=== PATIENT | female | born 1995 ===

== ENCOUNTER 2025-09-30 12:39 | Outpatient (AMB) | payer BC, SELFPAY ==
--- NOTE | 2025-09-30 12:50 | A.OFFPC_ITS ---
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: No Accompanied by: Self / Same As Patient Allergies prednisone Allergy (Severe, Verified 09/30/25 12:54) stop breathing Medication List - Last Reconciled 09/30/25 by Ebony Zayas MD loratadine 10 mg PO DAILY naproxen 750 mg PO ONCE PRN Tobacco use date assessed: 09/30/25 Dental Screening Dental Screen Date: 09/30/25 Did you have a dental visit in the last 12 months?: Yes Did you have a dental problem in the last 6 months where you did not have access to dental care?: No Was dental information given to patient?: Patient has dentist HPI HPI Comments History of Present Illness Details Patient is a 30-year-old female presenting to [facility] care and evaluation of multiple concerns. The patient reports a history of fainting episodes for many years, dating back to childhood. These episodes became more frequent a few years ago, but have since improved to presyncopal episodes about once a week. The last syncopal episode with loss of consciousness was in 2020. Pre-syncopal symptoms include feeling clammy and cold, tinnitus, tunnel vision, and headache, lasting for a few minutes with no specific triggers. Intermittent palpitations. The patient previously used a watch that monitored heart rate and recorded highs of 170 bpm and lows of 50 bpm within the same hour. Drinks 1-2 coffee a week and energy drink once a week. For the past couple of months, the patient has experienced generalized pruritus and a burning sensation over the whole body, leading to bruises and skin breakdown from scratching. Denies any rash, changes in his skin products or detergents. Reports Benadryl intolerance it causes her anxiety and pa lpitations. The patient also reports a history of high cholesterol, painful periods requiring missing work, anemia, and vitamin B12 deficiency. A workup for rheumatoid arthritis was started in the past. Past surgical history is negative. The patient takes naproxen as needed. Family history is significant for diabetes, POTS, and early-onset heart attacks in the father in his 50s. The paternal grandmother had blood and breast cancer. 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 The patient smokes two cigarettes daily, reduced few months ago from up to a pack a day for 13 years. The patient is also cutting back on alcohol, currently drinking 3-4 glasses of wine twice a week, and uses a marijuana vape weekly for sleep. [facility] Social History Housing: Other Housing Other:: renting room Patient Tobacco Use Status: Current everyday Tobacco user Cigarettes Per Day: 2 Years Smoked: 13 years e-Cigarette/Vaping Use: Currently Using service: No Current occupational status: employed Current occupation: [employer] Questionnaire PHQ-9 Over the last 2 weeks, how often have you been bothered by any of the following problems? 1. Little interest or pleasure in doing things: nearly every day 2. Feeling down, depressed, or hopeless: nearly every day 3. Trouble falling or staying asleep, or sleeping too much: nearly every day 4. Feeling tired or having little energy: nearly every day 5. Poor appetite or overeating: nearly every day 6. Feeling bad about yourself - or that you are a failure or have let yourself o r your family down: nearly every day 7. Trouble concentrating on things, such as reading the newspaper or watching television: nearly every day 8. Moving or speaking so slowly that other people could have noticed. Or the opposite - being so fidgety or restless that you have been moving around a lot more than usual: several days 9. Thoughts that you would be better off or of hurting yourself in some way: not at all Total score: 22 Source: Developed by Drs. Kian Pace, Denisse Driscoll, Renny Crow and colleagues, with an educational jam from [employer]. Thrive Questionnaire Date Thrive assessed: 09/30/25 I am a: Patient What is your living situation today?: I have a place to live, but I am worried about losing it in the future Within the past 12 months, did the food you bought not last and you didn't have the money to get more?: I choose not to answer this question Within the past 12 months, did you worry whether your food would run out before you got money to buy more?: Sometimes True Do you have trouble paying for medicines?: Yes Do you have trouble getting transportation to medical appointments?: Yes Do you have trouble paying your heating and electricity bill?: I choose not to answer this question Do you have trouble taking care of your child, family member or friend?: No Do you have trouble with day-to-day activities such as bathing, preparing meals, shopping, managing finances, etc.?: Yes Are you currently unemployed and looking for a job?: No Are you interested in more education?: I choose not to answer this question Please select the resources that you would like help with: Housing/Assisted and Paying for medicine Currently or been in a relationship where the following occur: No concerns reported THRIVE Score: 3 AUDIT C Alcohol Use Questionnaire (AUDIT-C) 1. How often do you have a drink containing alcohol?: 2-3 times a week 2. How many drinks containing alcohol do you have on a typical day when you are drinking?: 5 or 6 3. How often do you have six or more drinks on one occasion?: Monthly Total Score: 7 RAUL-7 AMB Questionnaire RAUL-7 Date RAUL - 7 assessed: 09/30/25 Feeling nervous, anxious, or on edge: 3 = Nearly every day Not being able to stop or control worryin = Nearly every day Worrying too much about different things: 3 = Nearly every day Trouble relaxin = Nearly every day Being so restless that it is hard to sit still: 2 = More than half the days Becoming easily annoyed or irritable: 3 = Nearly every day Feeling afraid as if something awful might happen: 3 = Nearly every day Total RAUL-7 score (0-4 normal; 5-9 mild; 10-14 moderate; 15-21 severe): 20 Source: Developed by Drs. Kian Pace, Denisse Driscoll, Renny Crow and colleagues, with an educational jam from [employer]. Physical exam (Primary Care) Vital Signs: Last Vital Signs Pulse 110 H 09/30/25 12:52 Resp 16 09/30/25 12:52 BP 116/82 09/30/25 12:52 Pulse Ox 99 09/30/25 12:52 Oxygen Delivery Method Room Air 09/30/25 12:52 General: Well-appearing, alert, oriented ?3, in no acute distress. Cardiovascular: RRR, S1-S2 appreciated, no murmurs, rubs or gallops. Respiratory: Lungs clear to auscultation bilaterally, no wheezes, rales or rhonchi. Abdomen: Soft, nontender, nondistended. Normoactive bowel sounds. No lower extremity edema. BMI result Body Mass Index 23.0 Tobacco/Smoking Status: Tobacco use Status Tobacco use date assessed 09/30/25 09/30/25 12:51 Patient Tobacco Use Status Current everyday Tobacco 09/30/25 13:00 e-Cigarette/Vaping Use Currently Using 09/30/25 13:00 PHQ-9: PHQ-9 Score PHQ-9: Total score 22 09/30/25 12:51 Thrive Assessment: Date of Thrive Assessment Date Thrive assessed 09/30/25 09/30/25 13:00 Currently or been in a relationship where the following occur: No concerns reported Coding Level of Care Code New Pt Level 4 (96505) Diagnoses Establishing care with new doctor, encounter for Z76.89 Palpitations R00.2 Generalized pruritus L29.9 Anemia, unspecified type D64.9 Anemia type: unspecified type Vitamin B12 deficiency E53.8 Assessment & Plan Assessment & Plan (1) Establishing care with new doctor, encounter for: Code(s): Z76.89 - Persons encountering health services in other specified circumstances Plan: Patient is a 22-year-old female presenting to establish care. (2) Palpitations: Code(s): R00.2 - Palpitations Category: Medical Plan: Patient reports a longstanding history of intermittent palpitations presyncopal episodes and syncopal episodes in the past, last occurred in 2020. Reports significant heart rate variability noted on her Apple watch ranging from 50s to 170s. Reports family history of POTS and heart attack in her father in his 50s. Plan is to obtain blood work, an EKG, a 3 day Holter monitor and echocardiogram. Referral to Cardiology placed for further evaluation and management. (3) Generalized pruritus: Code(s): L29.9 - Pruritus, unspecified Category: Medical Plan: Patient complains of diffuse itching and burning sensation in her entire body for the past 2 months resulting in excoriations, without rash or specific lesions. Could be neurodermatitis, xerosis. Patient advised to laundry detergent and skin care products for sensitive skin, apply daily moisturizer. Consider shower head water filter. Patient reports reaction to Benadryl of worsened anxiety and palpitations. Start loratadine 10 mg daily for symptomatic relief (4) Anemia: Code(s): D64.9 - Anemia, unspecified Category: Medical Qualifiers: Anemia type: unspecified type Qualified Code(s): D64.9 - Anemia, unspecified Plan: Patient reports history of anemia. Obtain CBC and iron panel (5) Vitamin B12 deficiency: Code(s): E53.8 - Deficiency of other specified B group vitamins Plan: Patient reports history of vitamin B12 deficiency, obtain level. Orders: Orders Lipid Panel with Reflex Today E78.5 - Hyperlipidemia, unspecified Hemoglobin A1c Today Z83.3 - Family history of diabetes mellitus Complete Blood Count Auto Diff Today Z00.00 - Encounter for general adult medical examination without abnormal findings Comprehensive Met. Panel Today Z00.00 - Encounter for general adult medical examination without abnormal findings IRON PROFILE Today D64.9 - Anemia, unspecified Vitamin D 25-OH (D2 and D3) Today Z13.21 - Encounter for screening for nutritional disorder Vitamin B12 and Folate Today E53.8 - Deficiency of other specified B group vitamins ECG 12 lead EKG Today R00.2 - Palpitations ECG 3 day holter monitor Today R00.2 - Palpitations CA echo transthoracic complete Today R00.2 - Palpitations Magnesium Today R00.2 - Palpitations Referrals Cardiology Referral R00.2 - Palpitations Medications: New loratadine 10 mg PO DAILY 30 tabs 2RF pruritis
[2025-09-30 12:52] VITALS: BP 116/82; PULSE 110; RESP 16; O2SAT 99; BMI 23.0
== END 2025-09-30 13:45 | disposition home or self-care (01) ==
LOC: HO.HMCH 12:39
PROVIDERS: PCP Student in an Organized Health Care Education/Training Program; Visit Provider Student in an Organized Health Care Education/Training Program
DX: Z76.89 Persons encountering health services in other specified circumstances (principal); R00.2 Palpitations; L29.9 Pruritus, unspecified; D64.9 Anemia, unspecified; E53.8 Deficiency of other specified B group vitamins

== ENCOUNTER 2025-10-08 08:15 | Outpatient (REF) | payer BC, SELFPAY ==
[2025-10-08 08:28] LABS: MANUAL DIFF FLAG NO
[2025-10-08 08:41] LABS: Hematocrit 42.5 % (37.0-47.0); Hemoglobin 14.0 g/dl (12.0-16.0); Imm Gran Abs Auto 0.03 X10*3/uL (0.00-0.03); Imm Gran Pct Auto 0.3 % (0.0-0.4); Lymphocytes Absolute Auto 2.5 X10*3/uL (1.2-4.9); Mean Corpuscular HGB Conc 32.9 g/dl (31.0-35.0); Mean Corpuscular Hemoglobin 31.5 pg (27.0-33.0); Mean Corpuscular Volume 95.5 fL (80.0-98.0); NRBC Abs Auto 0.000 X10*3/uL (0.0-0.012); NRBC Pct Auto 0.0 /100WBC (0.0-0.2); Platelet Count 247 X10*3/uL (160-400); Red Blood Count 4.45 X10*6/uL (4.20-5.50); White Blood Count 8.7 X10*3/uL (4.8-10.8)
[2025-10-08 09:19] LABS: Alanine Aminotransferase 18 U/L (0-31); Albumin Level 4.6 g/dL (3.5-5.0); Alkaline Phosphatase 78 U/L (39-117); Anion Gap 11 (12-20); Aspartate Amino Transferase 22 U/L (5-31); Blood Urea Nitrogen 12 mg/dL (9-16); Calcium 9.0 mg/dL (8.4-10.2); Carbon Dioxide 27 mmol/L (22-29); Chloride 107 mmol/L (96-108); Cholesterol 163 mg/dL (<200); Estimated Glomerular Filt Rate > 60; HDL Cholesterol 69 mg/dL (>40); Iron 150 mcg/dL (30-160); Magnesium 1.7 mg/dL (1.6-2.6); Percent Iron Saturation 45 % (15-50); Potassium 4.0 mmol/L (3.3-5.1); Sodium 141 mmol/L (135-145); Total Iron Binding Capacity 333 mcg/dL (228-428); Total Protein 7.4 g/dL (6.5-8.0); Triglycerides 57 mg/dL (<150); Unsaturated Iron Binding 183 ug/dL
[2025-10-08 09:55] LABS: Folate 8.1 ng/mL (> or = 4.0); Vitamin B12 391 pg/mL (200-900)
[2025-10-08 11:43] LABS: Reflex LDLD? No
[2025-10-12 07:04] LABS: Vitamin D 25-OH, D2 <4 ng/mL; Vitamin D 25-OH, D3 11 ng/mL; Vitamin D 25-OH, Total 11 ng/mL (30-100)
== END 2025-10-08 08:16 | disposition home or self-care (01) ==
LOC: HO.LAB 08:15
PROVIDERS: PCP Student in an Organized Health Care Education/Training Program; Visit Provider Student in an Organized Health Care Education/Training Program
DX: Z00.00 Encounter for general adult medical examination without abnormal findings (principal); E78.5 Hyperlipidemia, unspecified; Z83.3 Family history of diabetes mellitus; D64.9 Anemia, unspecified; E53.8 Deficiency of other specified B group vitamins; Z13.21 Encounter for screening for nutritional disorder; R00.2 Palpitations; Z13.1 Encounter for screening for diabetes mellitus
CPT/HCPCS: 36415; 80053; 80061; 82306; 82607; 82746; 83036; 83540; 83735; 85025

== ENCOUNTER 2025-10-16 17:24 | Inpatient (IN) | payer BC, SELFPAY ==
[2025-10-16 17:26] VITALS: BMI 23.8
[2025-10-16 17:36] VITALS: BP 148/71; PULSE 88; RESP 20; TEMP 37.1; O2SAT 96
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
[2025-10-16 20:00] VITALS: BP 124/61; PULSE 83; RESP 20; TEMP 37; O2SAT 95
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
[2025-10-17 08:00] VITALS: BP 123/72; PULSE 83; TEMP 36.1; O2SAT 99
[2025-10-17] MEDS: FLUoxetine HCl Oral Solution 20 MG/5 ML SOLUTION 10 MG PO (08:35)
[2025-10-17 08:48] LABS: Alanine Aminotransferase 19 U/L (0-31); Albumin Level 4.5 g/dL (3.5-5.0); Alkaline Phosphatase 75 U/L (39-117); Anion Gap 11 (12-20); Aspartate Amino Transferase 23 U/L (5-31); Blood Urea Nitrogen 11 mg/dL (9-16); Calcium 9.8 mg/dL (8.4-10.2); Carbon Dioxide 28 mmol/L (22-29); Chloride 104 mmol/L (96-108); Cholesterol 200 mg/dL (<200); Creatinine Clr Calc Pharmacy 102.4; Estimated Glomerular Filt Rate > 60; HDL Cholesterol 88 mg/dL (>40); Magnesium 2.1 mg/dL (1.6-2.6); Potassium 4.1 mmol/L (3.3-5.1); Sodium 139 mmol/L (135-145); Total Protein 7.2 g/dL (6.5-8.0); Triglycerides 58 mg/dL (<150)
[2025-10-17 09:03] LABS: Free T4 (Free Thyroxine) 1.15 ng/dL (0.71-1.85); Thyroid Stimulating Hormone 1.58 uIU/mL (0.32-4.0)
[2025-10-17 09:15] LABS: Folate 9.7 ng/mL (> or = 4.0); Vitamin B12 388 pg/mL (200-900)
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
[2025-10-17 11:35] VITALS: BP 130/70; PULSE 86; RESP 20; TEMP 36.6; O2SAT 98
[2025-10-17 20:00] VITALS: BP 127/79; PULSE 104; RESP 15; TEMP 36.6; O2SAT 98
[2025-10-18 08:00] VITALS: BP 114/70; PULSE 97; TEMP 36.4; O2SAT 98
[2025-10-18 11:20] VITALS: BP 120/66; PULSE 86; RESP 18; TEMP 36.6; O2SAT 98
[2025-10-18 12:22] LABS: Bacterial Vaginosis PCR NEGATIVE (Negative); Candida Group PCR DETECTED (Not Detect); Candida glab krusei PCR NOT DETECTED (Not Detect); Trichomonas vaginalis PCR NOT DETECTED (Not Detect)
--- NOTE | 2025-10-18 15:18 | MHC.RECOVRN ---
Attempted to meet with pt. x 2 following consult received for alcohol abuse. Pt in meeting with [employer]. Will attempt again tomorrow. ACS available PRN
--- NOTE | 2025-10-18 17:49 | P.PNPSI_ITS ---
Subjective Subjective Date of Service: 10/18/25 Reason For Visit: SI Interim History: Met with patient; discussed with team Patient said that in some way she is starting to feel little better SI is fully resolved; however she is also starting to be come more aware of her depression and anxiety. Patient is most anxious about where she is going to live since this a restraining order on her at her current residents. She does not think family will be able to help all that much. However patient trying to remain hopeful, reminding herself that she is resilient, has a good job and has made it through many other things, even without medication; she thinks her Seroquel should be increased and agreed to have it go to 100 mg Mental Status Exam Mental Status Exam Narrative: Pt is alert and oriented; behavior is cooperative, friendly and calm; patient is not in distress; dressed in casual attire with unkempt hair but adequate hygiene; mood is described as anxious.. Depressed and affect congruent, a little downcast eye contact appropriate; Speech is normal rate, volume and prosody and not pressured; no psychomotor agitation/retardation present; thought process is organized and goal directed; Thought content is on psychosocial stressors, treatment; otherwise pertinent to relevant topics and without any delusional content, paranoid ideations or grandiosity; denies any SI/HI. Denies AVH and there is no evidence of perceptual disturbance. Patients insight and judgment appear intact. Diagnostics Vital Signs (24Hr): Vital Signs - 24 hr 10/17/25 20:00 10/18/25 08:00 10/18/25 11:20 Temperature 97.8 F 97.5 F 98 F Pulse Rate 104 H 97 86 Respiratory Rate 15 18 Blood Pressure 127/79 114/70 120/66 Pulse Oximetry 98 98 98 Oxygen Delivery Method Room Air Room Air BMI result Body Mass Index 23.8 Labs 10/17/25 08:08 Labs: Laboratory Results - last 48 hr 10/17/25 10/17/25 10/17/25 08:08 08:09 11:40 Sodium 139 Potassium 4.1 Chloride 104 Carbon Dioxide 28 Anion Gap 11 L BUN 11 Creatinine 0.61 Estim Creat Clear Calc 102.4 Estimated GFR > 60 Random Glucose 92 Estimat Average Glucose 88 Hemoglobin A1c % 4.7 Calcium 9.8 D Magnesium 2.1 Total Bilirubin 0.9 AST 23 ALT 19 Alkaline Phosphatase 75 Total Protein 7.2 Albumin 4.5 Triglycerides 58 Cholesterol 200 H LDL Cholesterol, Calc 101 H HDL Cholesterol 88 Vitamin B12 388 Folate 9.7 TSH 1.58 Free T4 1.15 T. vaginalis (PCR) NOT DETECTED Bact vaginosis (PCR) NEGATIVE C. krusei/glabrata (PCR) NOT DETECTED Autumn group (PCR) DETECTED A Medications Medications Current Medications Acetaminophen (Acetaminophen 325 Mg Tablet) 650 mg PO Q6H PRN PRN Reason: Headache/Pain, Scale 1-10 Al Hydroxide/Mg Hydroxide (Magnesium Hydrox/Alum Hydrox 30 Ml Oral.Susp) 30 ml PO Q6H PRN PRN Reason: Heartburn/Nausea Fluoxetine HCl (Fluoxetine Hcl 10 Mg Capsule) 10 mg PO DAILY [facility] Last Admin: 10/18/25 09:33 Dose: 10 mg Hydroxyzine HCl (Hydroxyzine Hcl 25 Mg Tablet) 25 mg PO Q6H PRN PRN Reason: mild anxiety Last Admin: 10/17/25 18:20 Dose: 25 mg Loratadine (Loratadine 10 Mg Tablet) 10 mg PO DAILY [facility] Last Admin: 10/18/25 09:33 Dose: 10 mg Lorazepam (Lorazepam 1 Mg Tablet) 1 mg PO Q2H PRN PRN Reason: CIWA 8-11 Last Admin: 10/18/25 11:20 Dose: 1 mg Lorazepam (Lorazepam 1 Mg Tablet) 2 mg PO Q2H PRN PRN Reason: CIWA 12-15 Magnesium Hydroxide (Milk Of Magnesia 30 Ml Oral.Susp) 30 ml PO DAILY PRN PRN Reason: Constipation Melatonin (Melatonin 3 Mg Tablet) 6 mg PO BEDTIME [facility] Last Admin: 10/17/25 20:40 Dose: 6 mg Nicotine (Nicotine 21 Mg Patch.Td24) 21 mg TRANSDERMA DAILY PRN PRN Reason: nicotine craving Nicotine Polacrilex (Nicotine Polacrilex 2 Mg Gum) 2 mg BUCCAL Q2H PRN PRN Reason: Nicotine Cravings Last Admin: 10/18/25 13:24 Dose: 2 mg Quetiapine Fumarate (Quetiapine Fumarate 25 Mg Tablet) 25 mg PO BID PRN PRN Reason: agation/pschosis Last Admin: 10/18/25 16:21 Dose: 25 mg Quetiapine Fumarate (Quetiapine Fumarate 100 Mg Tablet) 100 mg PO BEDTIME [facility] Thiamine HCl (Thiamine Hcl 100 Mg Tablet) 100 mg PO DAILY [facility] Last Admin: 10/18/25 09:33 Dose: 100 mg Trazodone HCl (Trazodone Hcl 50 Mg Tablet) 50 mg PO BEDTIME MRX1 PRN PRN Reason: Insomnia Last Admin: 10/17/25 22:47 Dose: 50 mg Vitamin D (Cholecalciferol (Vitamin D3) 25 Mcg Tablet) 25 mcg PO DAILY [facility] Last Admin: 10/18/25 09:33 Dose: 25 mcg Allergies Allergies Allergy/AdvReac Type Severity Reaction Status Date / Time prednisone Allergy Severe stop Verified 09/30/25 12:54 breathing Assessment & Plan Assessment & Plan (1) MDD (major depressive disorder), recurrent episode, moderate: Status: Acute Code(s): F33.1 - Major depressive disorder, recurrent, moderate (2) OCD (obsessive compulsive disorder): Status: Acute Code(s): F42.9 - Obsessive-compulsive disorder, unspecified (3) Borderline personality disorder in adult: Status: Acute Code(s): F60.3 - Borderline personality disorder (4) ADHD: Status: Acute Code(s): F90.9 - Attention-deficit hyperactivity disorder, unspecified type (5) Eating disorder: Status: Acute Code(s): F50.9 - Eating disorder, unspecified (6) Complex posttraumatic stress disorder: Status: Acute Code(s): F43.10 - Post-traumatic stress disorder, unspecified (7) Homeless: Status: Acute Code(s): Z59.00 - Homelessness unspecified Plan HPI: patient is a 30-year-old single Green[place]ic speaking female with hx of MDD, ADHD, OCD, BPD, EDNOS, anxiety, and complicated/chronic PTSD who presenting to the emergency department after suicide attempt by cutting her left wrist Precipitants: Patient reports her roommate filed restraining order against her, which pushed her over the edge . She took a kitchen knife to her left wrist and cut her wrist in front of both her roommate and the homeowner where she is living. Denies any HI. No A/V hallucination. Endorses regular alcohol use, no history of withdrawals. No access to firearms. States a long history of mental health problems, has been inpatient before. Just establish care with a PCP for the first time in 8 years and has not yet been put on any mental health medications.Reports she is in her final year of her associates degree and is now frustrated because if she goes inpatient, that will be ruined for her as well. Feels like she cannot catch a break. Formulation/clinical reasoning: Cut self with intent to take her life away, increased in anxiety and depression, mood is up and down from BPD, not into an issues with roommate and has no contact order from roommate, therefore she may not able to return- housing unstable which triggered PTSD symptoms. Hx of BPD, OCD, ADHD, MDD, anxiety, and complex PTSD. Given above information, patient would benefit in restrictive environment for own safety and the safety of others, medication management, and refer patient to intermediate/OP psychiatric services for aftercare. Hospital course: 10/16/25: Prozac 10mg daily in the AM for anixety/depression/OCD. (denies manic hx) Seroquel 50mg at HS for mood/insomnia which can be chronic Seroquel 25mg BID PRN for agitation/psychosis Melatonin 6mg at HS for insonia Vitamin D3 25mcg dialy in the morning for low vitamin level (11). CIWA Protocol with PRN Ativan for alcohol W/D symptoms. PRN for anxiety/insomnia and other PRN comfort meds available. 10/17 patient reports starting to feel better; says she slept well with trazodone. Wants to continue with Prozac and Seroquel. Some withdrawal continues but she thinks it is waning. No SI -patient wants help getting and staying sober 10/18 Patient said that in some way she is starting to feel little better SI is fully resolved; however she is also starting to be come more aware of her depression and anxiety. Patient is most anxious about where she is going to live since this a restraining order on her at her current residents. She does not think family will be able to help all that much. However patient trying to remain hopeful, reminding herself that she is resilient, has a good job and has made it through many other things, even without medication; she thinks her Seroquel should be increased and agreed to have it go to 100 mg -patient earlier today complained of mild rash on her chest and abdomen; content writer assess later in the afternoon and it was hardly visible and patient agreed that it seems to be resolving; she thinks it might be due to contact with hospital clothing on her admission. Agrees to monitor -low scoring but still some scoring so will continue CIWA for now Plan Patient on 15 minute checks for safety. Admitted to M5. CV. Continue Prozac 10 mg Increase to Seroquel 100 mg Work with treatment team to do collateral. Refer to patient to solar energy sales specialist: yes- pending for alcohol use. Contact the hospitalist regarding hospitalist consultation on admission: pending Diagnotic and dsicharge planning Medical trials: seroquel, Prozac, flexeril and zyprexa.Report zyprexa has terrible side effects of weight gain and not helpful but combination of Seroquel and Prozac in the past were very helpful. She would like to restart. We also discuss regarding Prazosin but will start Seroquel and Prozac for now and will plan to add Prazosin in the future for PTSD. I think it is safer that way. Patient educated on: diagnosis, medication risk/benefits and therapeutic strategies Informed Consent: understands Reason for continued inpatient stay Substantial Risk for: rapid decompensation Time Spent With Patient Time: Total time managing care of this patient today ____ minutes.
[2025-10-18 20:00] VITALS: BP 130/88; PULSE 99; RESP 15; TEMP 36.6; O2SAT 98
[2025-10-19 08:00] VITALS: BP 108/78; PULSE 218; RESP 18; TEMP 36.4; O2SAT 97
[2025-10-19 08:12] VITALS: PULSE 86
--- NOTE | 2025-10-19 08:12 | PC.NURSE ---
PT's pulse during vitals noted to be 218 by [facility], via dynamap and palpation, recheck was completed by RN with resting radial pulse at 86, patient states, This is something I have had and I am going to a plate conditioner who is going to put me on a halter monitor to check . Patient shows no signs of distress, resp even and unlabored, caox4, PWD, denies any symptoms, ambulating with a steady gait. Provider notified.
--- NOTE | 2025-10-19 10:04 | P.PNPSI_ITS ---
Subjective Subjective Date of Service: 10/19/25 Reason For Visit: SI Subjective Notes: Conditional Voluntary Healthcare Proxy: No Guardianship: No Medical Problems Affecting Mental Status: No Interim History: Denies SI,HI,AH,VH. CIWA/Lorazepam discontinued as pt believes she has completed detox. Discussed PTSD, trauma and medicating with alcohol. Pt's goals are to re- establish meds, receive referrals for stable out pt provider team and continue to work on stable housing. Reports diagnosis of borderline personality when in [place] which she will challenge-believes PTSD, Autism are more appropriate. My father has borderline personality, I do not lash out and don't believe I meet this criteria. Discussed autism dx-never formally tested. Reports IQ 162 with sx present since childhood. Discussed homelessness-cousin is helpful, offering storage space. Cousin's friend may be an option for housing. Pt and mother have been looking to live together for several years. Mother currently in supported living which pt describes as a bad situation. They are on a section VIII list, however, pt updated her name in April 2025 and was not allowed to update her application with her new name. She receives food stamps only and is looking for the stability of housing. 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 Later in the afternoon pt was served a restraining order by her partner. Medication Compliance: Yes Side effects from medications: No Attending Groups: Yes Review of Systems Acute medical concerns: No Review of Systems Review of Systems denies Mental Status Exam Mental Status Exam Patient Appearance: Appropriate Patient Orientation: Person, Place, Time and Situation Level of Consciousness: Alert Patient Behavior: Talkative and Good Eye Contact Mood Description: Anxious and Apprehensive Affect Description: Anxious and Apprehensive Patient Cognition Impaired: No Ability to Follow Directions: Good Speech Pattern: Spontaneous Speech Memory Description: Intact Hallucinations: None Delusions: Not Present Thought Process: Intact and Goal Oriented Thought Content: positive for Intact, positive for Goal Oriented and positive for Suicidal Ideation (denies) Depressive Symptoms: Thoughts of /Suicide (denies) Judgement: Fair Diagnostics Vital Signs (24Hr): Vital Signs - 24 hr 10/18/25 11:20 10/18/25 20:00 10/19/25 08:00 Temperature 98 F 97.9 F 97.5 F Pulse Rate 86 99 218 H Respiratory Rate 18 15 18 Blood Pressure 120/66 130/88 108/78 Pulse Oximetry 98 98 97 Oxygen Delivery Method Room Air Room Air 10/19/25 08:12 Temperature Pulse Rate 86 Respiratory Rate Blood Pressure Pulse Oximetry Oxygen Delivery Method BMI result Body Mass Index 23.8 Labs 10/17/25 08:08 Labs: Laboratory Results - last 48 hr 10/17/25 11:40 T. vaginalis (PCR) NOT DETECTED Bact vaginosis (PCR) NEGATIVE C. krusei/glabrata (PCR) NOT DETECTED Autumn group (PCR) DETECTED A Medications Medications Current Medications Acetaminophen (Acetaminophen 325 Mg Tablet) 650 mg PO Q6H PRN PRN Reason: Headache/Pain, Scale 1-10 Al Hydroxide/Mg Hydroxide (Magnesium Hydrox/Alum Hydrox 30 Ml Oral.Susp) 30 ml PO Q6H PRN PRN Reason: Heartburn/Nausea Fluoxetine HCl (Fluoxetine Hcl 10 Mg Capsule) 10 mg PO DAILY [facility] Last Admin: 10/19/25 08:41 Dose: 10 mg Hydroxyzine HCl (Hydroxyzine Hcl 25 Mg Tablet) 25 mg PO Q6H PRN PRN Reason: mild anxiety Last Admin: 10/19/25 09:25 Dose: 25 mg Loratadine (Loratadine 10 Mg Tablet) 10 mg PO DAILY [facility] Last Admin: 10/19/25 08:41 Dose: 10 mg Lorazepam (Lorazepam 1 Mg Tablet) 1 mg PO Q2H PRN PRN Reason: CIWA 8-11 Last Admin: 10/18/25 11:20 Dose: 1 mg Lorazepam (Lorazepam 1 Mg Tablet) 2 mg PO Q2H PRN PRN Reason: CIWA 12-15 Magnesium Hydroxide (Milk Of Magnesia 30 Ml Oral.Susp) 30 ml PO DAILY PRN PRN Reason: Constipation Melatonin (Melatonin 3 Mg Tablet) 6 mg PO BEDTIME [facility] Last Admin: 10/18/25 20:55 Dose: 6 mg Nicotine (Nicotine 21 Mg Patch.Td24) 21 mg TRANSDERMA DAILY PRN PRN Reason: nicotine craving Nicotine Polacrilex (Nicotine Polacrilex 2 Mg Gum) 2 mg BUCCAL Q2H PRN PRN Reason: Nicotine Cravings Last Admin: 10/18/25 19:32 Dose: 2 mg Quetiapine Fumarate (Quetiapine Fumarate 25 Mg Tablet) 25 mg PO BID PRN PRN Reason: agation/pschosis Last Admin: 10/18/25 16:21 Dose: 25 mg Quetiapine Fumarate (Quetiapine Fumarate 100 Mg Tablet) 100 mg PO BEDTIME [facility] Last Admin: 10/18/25 20:55 Dose: 100 mg Thiamine HCl (Thiamine Hcl 100 Mg Tablet) 100 mg PO DAILY [facility] Last Admin: 10/19/25 08:41 Dose: 100 mg Trazodone HCl (Trazodone Hcl 50 Mg Tablet) 50 mg PO BEDTIME MRX1 PRN PRN Reason: Insomnia Last Admin: 10/18/25 20:55 Dose: 50 mg Vitamin D (Cholecalciferol (Vitamin D3) 25 Mcg Tablet) 25 mcg PO DAILY [facility] Last Admin: 10/19/25 08:40 Dose: 25 mcg Allergies Allergies Allergy/AdvReac Type Severity Reaction Status Date / Time prednisone Allergy Severe stop Verified 09/30/25 12:54 breathing Assessment & Plan Assessment & Plan (1) MDD (major depressive disorder), recurrent episode, moderate: Status: Acute Code(s): F33.1 - Major depressive disorder, recurrent, moderate (2) OCD (obsessive compulsive disorder): Status: Acute Code(s): F42.9 - Obsessive-compulsive disorder, unspecified (3) Borderline personality disorder in adult: Status: Acute Code(s): F60.3 - Borderline personality disorder (4) ADHD: Status: Acute Code(s): F90.9 - Attention-deficit hyperactivity disorder, unspecified type (5) Eating disorder: Status: Acute Code(s): F50.9 - Eating disorder, unspecified (6) Complex posttraumatic stress disorder: Status: Acute Code(s): F43.10 - Post-traumatic stress disorder, unspecified (7) Homeless: Status: Acute Code(s): Z59.00 - Homelessness unspecified Plan HPI: patient is a 30-year-old single [place] speaking female with hx of MDD, ADHD, OCD, BPD, EDNOS, anxiety, and complicated/chronic PTSD who presenting to the emergency department after suicide attempt by cutting her left wrist Precipitants: Patient reports her roommate filed restraining order against her, which pushed her over the edge . She took a kitchen knife to her left wrist and cut her wrist in front of both her roommate and the homeowner where she is living. Denies any HI. No A/V hallucination. Endorses regular alcohol use, no history of withdrawals. No access to firearms. States a long history of mental health problems, has been inpatient before. Just establish care with a PCP for the first time in 8 years and has not yet been put on any mental health medications.Reports she is in her final year of her associates degree and is now frustrated because if she goes inpatient, that will be ruined for her as well. Feels like she cannot catch a break. Formulation/clinical reasoning: Cut self with intent to take her life away, increased in anxiety and depression, mood is up and down from BPD, not into an issues with roommate and has no contact order from roommate, therefore she may not able to return- housing unstable which triggered PTSD symptoms. Hx of BPD, OCD, ADHD, MDD, anxiety, and complex PTSD. Given above information, patient would benefit in restrictive environment for own safety and the safety of others, medication management, and refer patient to snf/OP psychiatric services for aftercare. Hospital course: 10/16/25: Prozac 10mg daily in the AM for anixety/depression/OCD. (denies manic hx) Seroquel 50mg at HS for mood/insomnia which can be chronic Seroquel 25mg BID PRN for agitation/psychosis Melatonin 6mg at HS for insonia Vitamin D3 25mcg dialy in the morning for low vitamin level (11). CIWA Protocol with PRN Ativan for alcohol W/D symptoms. PRN for anxiety/insomnia and other PRN comfort meds available. 10/17 patient reports starting to feel better; says she slept well with trazodone. Wants to continue with Prozac and Seroquel. Some withdrawal continues but she thinks it is waning. No SI -patient wants help getting and staying sober 10/18 Patient said that in some way she is starting to feel little better SI is fully resolved; however she is also starting to be come more aware of her depression and anxiety. Patient is most anxious about where she is going to live since this a restraining order on her at her current residents. She does not think family will be able to help all that much. However patient trying to remain hopeful, reminding herself that she is resilient, has a good job and has made it through many other things, even without medication; she thinks her Seroquel should be increased and agreed to have it go to 100 mg -patient earlier today complained of mild rash on her chest and abdomen; technical publications writer assess later in the afternoon and it was hardly visible and patient agreed that it seems to be resolving; she thinks it might be due to contact with hospital clothing on her admission. Agrees to monitor -low scoring but still some scoring so will continue CIWA for now 10/19/25:Denies SI,HI,AH,VH. CIWA/Lorazepam discontinued as pt believes she has completed detox. Discussed PTSD, trauma and medicating with alcohol. Pt's goals are to re- establish meds, receive referrals for stable out pt provider team and continue to work on stable housing. Reports diagnosis of borderline personality when in [place] which she will challenge-believes PTSD, Autism are more appropriate. My father has borderline personality, I do not lash out and don't believe I meet this criteria. Discussed autism dx-never formally tested. Reports IQ 162 with sx present since childhood. Discussed homelessness-cousin is helpful, offering storage space. Cousin's friend may be an option for housing. Pt and mother have been looking to live together for several years. Mother currently in supported living which pt describes as a bad situation. They are on a section VIII list, however, pt updated her name in April 2025 and was not allowed to update her application with her new name. She receives food stamps only and is looking for the stability of housing. 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 Later in the afternoon pt was served a restraining order by her partner. Plan: Continue Fluoxetine, Quetiapine Clotrimazole Cream x 7 days Plan Patient on 15 minute checks for safety. Admitted to M5. CV. Continue Prozac 10 mg Increase to Seroquel 100 mg Work with treatment team to do collateral. Refer to patient to floral specialist: yes- pending for alcohol use. Contact the hospitalist regarding hospitalist consultation on admission: pending Diagnotic and dsicharge planning Medical trials: seroquel, Prozac, flexeril and zyprexa.Report zyprexa has terrible side effects of weight gain and not helpful but combination of Seroquel and Prozac in the past were very helpful. She would like to restart. We also discuss regarding Prazosin but will start Seroquel and Prozac for now and will plan to add Prazosin in the future for PTSD. I think it is safer that way. Reason for continued inpatient stay Substantial Risk for: rapid decompensation Time Spent With Patient Time: Total time managing care of this patient today ____ minutes.
--- NOTE | 2025-10-19 17:23 | MHC.RECOVRN ---
Met with Ketty in group room of after receiving an addiction consult for evaluation of alcohol use disorder. Upon approach pt is calm, oriented, and receptive to discussion with this RN. Pt reports drinking 1/2 pint of Vodka or 1 bottle of wine daily for the past 2-3 years. She reports withdrawal symptoms with discontinuation such as tremmors, feeling dizzy, and excessively sweating. Pt reported multiple stressors over the past years that have worsened her depression and reported attempting suicide 3 times over her lifetime. Pt also reported marijuana use - although this was not discussed extensively as our meeting was interrupted by Jameson HARRIS (who arrived outside the unit and served pt eviction documents). Pt stated she has an extensive family history of AUD and SUDs in general; my father was addicted to everything: alcohol, crack, meth [..] , VARGAS must've skipped a generation in my mom because my grandparents also used a lot of alcohol and drugs . Pt said When I was 18 I was abusing pills.. like a lot. I even tried the wish combo . During the assessment low-risk drinking guidelines were reviewed. Pt was counseled on specific harm-reduction strategies including setting a personal limit of no more than 1-2 drinks per occasion, alternating alcohol with water, pacing intake, and eating food prior to and during drinking.? Reviewed w/ pt the medical risks of heavy or daily use, including liver damage, GI damage, cardiac issues, and the dangers of abrupt withdrawal in dependent individuals.?Pt verbalized understanding of those risks. Pt was advised on nutrition, hydration, and vitamin supplementation, including the potential benefit of daily thiamine and multivitamins if use continues at higher levels. Reviewed pt?s readiness for change using motivational interviewing, and reaffirmed pt?s personal values such as health, work performance, finances, and relationships - as well as their concerns such as developing tolerance, having blackouts and worsening depression and SI d/t alcohol use. Pt has never been to treatment but is open to recommendations. She is willing to try recovery coaching and RAMOS. Provider AISSATOU Loza was made aware. SW made aware. Pt was also provided with written materials on AUD, RAMOS, harm reduction, and recovery supports/options (ATS, CSS, IOP, list of AA meetings). Pt prefers outpatient modalities due to working full-time. She reports transportation as being an obstacle to receiving treatment. Discussed w/ pt [facility] which may be able to offer transportation. Pt stated she is working with SW to build a support system including a therapist. Pt denied questions or concerns at this time. ACS team available for ongoing recovery support as needed.
[2025-10-19 19:49] VITALS: BP 127/87; PULSE 115; TEMP 36.1; O2SAT 96
[2025-10-19] MEDS: Clotrimazole 1 % Vaginal Cream 45 GM TUBE 1 APPL VAGINAL (20:08)
[2025-10-20 08:00] VITALS: BP 109/61; PULSE 85; RESP 20; TEMP 36.9; O2SAT 97
--- NOTE | 2025-10-20 10:20 | P.PNPSI_ITS ---
Subjective Subjective Date of Service: 10/20/25 Reason For Visit: SI Subjective Notes: Conditional Voluntary Healthcare Proxy: No Guardianship: No Medical Problems Affecting Mental Status: No Interim History: Denies SI,HI,AH,VH Reports they slept well, team reports 8 hours. Discussed that the homeowner, her and the other tenant have filed restraining orders on them. Concerned about court dates, however, reports she has no paperwork to reference. Discussed with [place] and [place] [facility] per pt request, who state they need paperwork to look up these charges/dates. Pt does not understand why these were filed against them Pt attending groups, reports milieu to be helpful. Medication Compliance: Yes Side effects from medications: No Attending Groups: Yes Review of Systems Acute medical concerns: No Review of Systems Review of Systems Denies Mental Status Exam Mental Status Exam Patient Appearance: Appropriate Patient Orientation: Person, Place, Time and Situation Level of Consciousness: Alert Patient Behavior: Talkative and Good Eye Contact Mood Description: Anxious and Apprehensive Affect Description: Anxious and Apprehensive Patient Cognition Impaired: No Ability to Follow Directions: Good Speech Pattern: Spontaneous Speech Memory Description: Intact Hallucinations: None Delusions: Not Present Thought Process: Intact and Goal Oriented Thought Content: positive for Intact, positive for Goal Oriented and positive for Suicidal Ideation (denies) Depressive Symptoms: Thoughts of /Suicide (denies) Judgement: Fair Diagnostics Vital Signs (24Hr): Vital Signs - 24 hr 10/19/25 19:49 10/20/25 08:00 Temperature 96.9 F 98.5 F Pulse Rate 115 H 85 Respiratory Rate 20 Blood Pressure 127/87 109/61 Pulse Oximetry 96 97 Oxygen Delivery Method Room Air Room Air Oxygen Flow Rate 97 BMI result Body Mass Index 23.8 Labs 10/17/25 08:08 Labs: Laboratory Results - last 48 hr 10/17/25 11:40 T. vaginalis (PCR) NOT DETECTED Bact vaginosis (PCR) NEGATIVE C. krusei/glabrata (PCR) NOT DETECTED Autumn group (PCR) DETECTED A Medications Medications Current Medications Acetaminophen (Acetaminophen 325 Mg Tablet) 650 mg PO Q6H PRN PRN Reason: Headache/Pain, Scale 1-10 Last Admin: 10/20/25 09:01 Dose: 650 mg Al Hydroxide/Mg Hydroxide (Magnesium Hydrox/Alum Hydrox 30 Ml Oral.Susp) 30 ml PO Q6H PRN PRN Reason: Heartburn/Nausea Clotrimazole (Clotrimazole 1 % Vaginal Cream 45 Gm Tube) 1 appl VAGINAL BEDTIME [facility] Stop: 10/25/25 21:01 Last Admin: 10/19/25 20:08 Dose: 1 appl Fluoxetine HCl (Fluoxetine Hcl 10 Mg Capsule) 10 mg PO DAILY [facility] Last Admin: 10/20/25 08:57 Dose: 10 mg Hydroxyzine HCl (Hydroxyzine Hcl 25 Mg Tablet) 25 mg PO Q6H PRN PRN Reason: mild anxiety Last Admin: 10/20/25 09:02 Dose: 25 mg Loratadine (Loratadine 10 Mg Tablet) 10 mg PO DAILY [facility] Last Admin: 10/20/25 08:57 Dose: 10 mg Magnesium Hydroxide (Milk Of Magnesia 30 Ml Oral.Susp) 30 ml PO DAILY PRN PRN Reason: Constipation Melatonin (Melatonin 3 Mg Tablet) 6 mg PO BEDTIME [facility] Last Admin: 10/19/25 20:08 Dose: 6 mg Nicotine (Nicotine 21 Mg Patch.Td24) 21 mg TRANSDERMA DAILY PRN PRN Reason: nicotine craving Nicotine Polacrilex (Nicotine Polacrilex 2 Mg Gum) 2 mg BUCCAL Q2H PRN PRN Reason: Nicotine Cravings Last Admin: 10/20/25 08:57 Dose: 2 mg Quetiapine Fumarate (Quetiapine Fumarate 25 Mg Tablet) 25 mg PO BID PRN PRN Reason: agation/pschosis Last Admin: 10/19/25 14:02 Dose: 25 mg Quetiapine Fumarate (Quetiapine Fumarate 100 Mg Tablet) 100 mg PO BEDTIME [facility] Last Admin: 10/19/25 20:08 Dose: 100 mg Thiamine HCl (Thiamine Hcl 100 Mg Tablet) 100 mg PO DAILY [facility] Last Admin: 10/20/25 08:57 Dose: 100 mg Trazodone HCl (Trazodone Hcl 50 Mg Tablet) 50 mg PO BEDTIME MRX1 PRN PRN Reason: Insomnia Last Admin: 10/19/25 20:08 Dose: 50 mg Vitamin D (Cholecalciferol (Vitamin D3) 25 Mcg Tablet) 25 mcg PO DAILY [facility] Last Admin: 10/20/25 08:57 Dose: 25 mcg Allergies Allergies Allergy/AdvReac Type Severity Reaction Status Date / Time prednisone Allergy Severe stop Verified 09/30/25 12:54 breathing Assessment & Plan Assessment & Plan (1) MDD (major depressive disorder), recurrent episode, moderate: Status: Acute Code(s): F33.1 - Major depressive disorder, recurrent, moderate (2) OCD (obsessive compulsive disorder): Status: Acute Code(s): F42.9 - Obsessive-compulsive disorder, unspecified (3) Borderline personality disorder in adult: Status: Acute Code(s): F60.3 - Borderline personality disorder (4) ADHD: Status: Acute Code(s): F90.9 - Attention-deficit hyperactivity disorder, unspecified type (5) Eating disorder: Status: Acute Code(s): F50.9 - Eating disorder, unspecified (6) Complex posttraumatic stress disorder: Status: Acute Code(s): F43.10 - Post-traumatic stress disorder, unspecified (7) Homeless: Status: Acute Code(s): Z59.00 - Homelessness unspecified Plan HPI: patient is a 30-year-old single Colombian speaking female with hx of MDD, ADHD, OCD, BPD, EDNOS, anxiety, and complicated/chronic PTSD who presenting to the emergency department after suicide attempt by cutting her left wrist Precipitants: Patient reports her roommate filed restraining order against her, which pushed her over the edge . She took a kitchen knife to her left wrist and cut her wrist in front of both her roommate and the homeowner where she is living. Denies any HI. No A/V hallucination. Endorses regular alcohol use, no history of withdrawals. No access to firearms. States a long history of mental health problems, has been inpatient before. Just establish care with a PCP for the first time in 8 years and has not yet been put on any mental health medications.Reports she is in her final year of her associates degree and is now frustrated because if she goes inpatient, that will be ruined for her as well. Feels like she cannot catch a break. Formulation/clinical reasoning: Cut self with intent to take her life away, increased in anxiety and depression, mood is up and down from BPD, not into an issues with roommate and has no contact order from roommate, therefore she may not able to return- housing unstable which triggered PTSD symptoms. Hx of BPD, OCD, ADHD, MDD, anxiety, and complex PTSD. Given above information, patient would benefit in restrictive environment for own safety and the safety of others, medication management, and refer patient to [facility]/OP psychiatric services for aftercare. Hospital course: 10/16/25: Prozac 10mg daily in the AM for anixety/depression/OCD. (denies manic hx) Seroquel 50mg at HS for mood/insomnia which can be chronic Seroquel 25mg BID PRN for agitation/psychosis Melatonin 6mg at HS for insonia Vitamin D3 25mcg dialy in the morning for low vitamin level (11). CIWA Protocol with PRN Ativan for alcohol W/D symptoms. PRN for anxiety/insomnia and other PRN comfort meds available. 10/17 patient reports starting to feel better; says she slept well with trazodone. Wants to continue with Prozac and Seroquel. Some withdrawal continues but she thinks it is waning. No SI -patient wants help getting and staying sober 10/18 Patient said that in some way she is starting to feel little better SI is fully resolved; however she is also starting to be come more aware of her depression and anxiety. Patient is most anxious about where she is going to live since this a restraining order on her at her current residents. She does not think family will be able to help all that much. However patient trying to remain hopeful, reminding herself that she is resilient, has a good job and has made it through many other things, even without medication; she thinks her Seroquel should be increased and agreed to have it go to 100 mg -patient earlier today complained of mild rash on her chest and abdomen; headline writer assess later in the afternoon and it was hardly visible and patient agreed that it seems to be resolving; she thinks it might be due to contact with hospital clothing on her admission. Agrees to monitor -low scoring but still some scoring so will continue CIWA for now 10/19/25:Denies SI,HI,AH,VH. CIWA/Lorazepam discontinued as pt believes she has completed detox. Discussed PTSD, trauma and medicating with alcohol. Pt's goals are to re- establish meds, receive referrals for stable out pt provider team and continue to work on stable housing. Reports diagnosis of borderline personality when in [place] which she will challenge-believes PTSD, Autism are more appropriate. My father has borderline personality, I do not lash out and don't believe I meet this criteria. Discussed autism dx-never formally tested. Reports IQ 162 with sx present since childhood. Discussed homelessness-cousin is helpful, offering storage space. Cousin's friend may be an option for housing. Pt and mother have been looking to live together for several years. Mother currently in supported living which pt describes as a bad situation. They are on a section VIII list, however, pt updated her name in April 2025 and was not allowed to update her application with her new name. She receives food stamps only and is looking for the stability of housing. 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 Later in the afternoon pt was served a restraining order by her partner. Plan: Continue Fluoxetine, Quetiapine Clotrimazole Cream x 7 days 10/20/25: Denies SI,HI,AH,VH Reports they slept well, team reports 8 hours. Discussed that the homeowner, her and the other tenant have filed restraining orders on them. Concerned about court dates, however, reports she has no paperwork to reference. Discussed with [place] and [place] [facility] per pt request, who state they need paperwork to look up these charges/dates. Pt does not understand why these were filed against them Pt attending groups, reports milieu to be helpful. Plan Patient on 15 minute checks for safety. Admitted to [facility]. CV. Continue Prozac 10 mg Increase to Seroquel 100 mg Work with treatment team to do collateral. Refer to patient to marine habitat resource specialist: yes- pending for alcohol use. Contact the hospitalist regarding hospitalist consultation on admission: pending Diagnotic and dsicharge planning Medical trials: seroquel, Prozac, flexeril and zyprexa.Report zyprexa has terrible side effects of weight gain and not helpful but combination of Seroquel and Prozac in the past were very helpful. She would like to restart. We also discuss regarding Prazosin but will start Seroquel and Prozac for now and will plan to add Prazosin in the future for PTSD. I think it is safer that way. Reason for continued inpatient stay Substantial Risk for: rapid decompensation Time Spent With Patient Time: Total time managing care of this patient today ____ minutes.
[2025-10-20 19:56] VITALS: BP 138/84; PULSE 114; TEMP 36.5; O2SAT 97
[2025-10-20] MEDS: Clotrimazole 1 % Vaginal Cream 45 GM TUBE 1 APPL VAGINAL (20:41)
--- NOTE | 2025-10-21 10:01 | P.PNPSI_ITS ---
Subjective Subjective Date of Service: 10/21/25 Reason For Visit: SI Subjective Notes: Conditional Voluntary Healthcare Proxy: No Guardianship: No Medical Problems Affecting Mental Status: No Interim History: Pt attending groups, finding milieu helpful. Anxious about restraining orders- discussed concerns. Struggling with management of symptoms/grounding. Reviewed benefits of low doses of prn olanzapine, risperdal, quetiapine and situations she may find them helpful in. Reports sleep is still of poor quality. Will increase Quetiapine this evening and re-eval efficacy. Medication Compliance: Yes Side effects from medications: No Attending Groups: Yes Review of Systems Acute medical concerns: No Medical Review of Systems: unchanged Review of Systems Review of Systems denies Mental Status Exam Mental Status Exam Patient Appearance: Appropriate Patient Orientation: Person, Place, Time and Situation Level of Consciousness: Alert Patient Behavior: Talkative and Good Eye Contact Mood Description: Anxious and Apprehensive Affect Description: Anxious and Apprehensive Patient Cognition Impaired: No Ability to Follow Directions: Good Speech Pattern: Spontaneous Speech Memory Description: Intact Hallucinations: None Delusions: Not Present Perceptual Disturbances: Depersonalization and Derealization Thought Process: Intact and Goal Oriented Thought Content: positive for Intact, positive for Goal Oriented and positive for Suicidal Ideation (denies) Depressive Symptoms: Thoughts of /Suicide (denies) Judgement: Fair Diagnostics Vital Signs (24Hr): Vital Signs - 24 hr 10/20/25 19:56 Temperature 97.7 F Pulse Rate 114 H Blood Pressure 138/84 Pulse Oximetry 97 Oxygen Delivery Method Room Air BMI result Body Mass Index 23.8 Labs 10/17/25 08:08 Medications Medications Current Medications Acetaminophen (Acetaminophen 325 Mg Tablet) 650 mg PO Q6H PRN PRN Reason: Headache/Pain, Scale 1-10 Last Admin: 10/20/25 09:01 Dose: 650 mg Al Hydroxide/Mg Hydroxide (Magnesium Hydrox/Alum Hydrox 30 Ml Oral.Susp) 30 ml PO Q6H PRN PRN Reason: Heartburn/Nausea Clotrimazole (Clotrimazole 1 % Vaginal Cream 45 Gm Tube) 1 appl VAGINAL BEDTIME [facility] Stop: 10/25/25 21:01 Last Admin: 10/20/25 20:41 Dose: 1 appl Fluoxetine HCl (Fluoxetine Hcl 10 Mg Capsule) 10 mg PO DAILY [facility] Last Admin: 10/21/25 09:11 Dose: 10 mg Hydroxyzine HCl (Hydroxyzine Hcl 25 Mg Tablet) 25 mg PO Q6H PRN PRN Reason: mild anxiety Last Admin: 10/20/25 09:02 Dose: 25 mg Loratadine (Loratadine 10 Mg Tablet) 10 mg PO DAILY [facility] Last Admin: 10/21/25 09:11 Dose: 10 mg Magnesium Hydroxide (Milk Of Magnesia 30 Ml Oral.Susp) 30 ml PO DAILY PRN PRN Reason: Constipation Melatonin (Melatonin 3 Mg Tablet) 6 mg PO BEDTIME [facility] Last Admin: 10/20/25 21:08 Dose: 6 mg Nicotine (Nicotine 21 Mg Patch.Td24) 21 mg TRANSDERMA DAILY PRN PRN Reason: nicotine craving Nicotine Polacrilex (Nicotine Polacrilex 2 Mg Gum) 4 mg BUCCAL Q2H PRN PRN Reason: Nicotine Cravings Last Admin: 10/20/25 18:28 Dose: 4 mg Quetiapine Fumarate (Quetiapine Fumarate 25 Mg Tablet) 25 mg PO BID PRN PRN Reason: agation/pschosis Last Admin: 10/20/25 22:43 Dose: 25 mg Quetiapine Fumarate (Quetiapine Fumarate 100 Mg Tablet) 100 mg PO BEDTIME [facility] Last Admin: 10/20/25 21:08 Dose: 100 mg Thiamine HCl (Thiamine Hcl 100 Mg Tablet) 100 mg PO DAILY [facility] Last Admin: 10/21/25 09:11 Dose: 100 mg Trazodone HCl (Trazodone Hcl 50 Mg Tablet) 50 mg PO BEDTIME MRX1 PRN PRN Reason: Insomnia Last Admin: 10/20/25 21:08 Dose: 50 mg Vitamin D (Cholecalciferol (Vitamin D3) 25 Mcg Tablet) 25 mcg PO DAILY [facility] Last Admin: 10/21/25 09:11 Dose: 25 mcg Allergies Allergies Allergy/AdvReac Type Severity Reaction Status Date / Time prednisone Allergy Severe stop Verified 09/30/25 12:54 breathing Assessment & Plan Assessment & Plan (1) MDD (major depressive disorder), recurrent episode, moderate: Status: Acute Code(s): F33.1 - Major depressive disorder, recurrent, moderate (2) OCD (obsessive compulsive disorder): Status: Acute Code(s): F42.9 - Obsessive-compulsive disorder, unspecified (3) Borderline personality disorder in adult: Status: Acute Code(s): F60.3 - Borderline personality disorder (4) ADHD: Status: Acute Code(s): F90.9 - Attention-deficit hyperactivity disorder, unspecified type (5) Eating disorder: Status: Acute Code(s): F50.9 - Eating disorder, unspecified (6) Complex posttraumatic stress disorder: Status: Acute Code(s): F43.10 - Post-traumatic stress disorder, unspecified (7) Homeless: Status: Acute Code(s): Z59.00 - Homelessness unspecified Plan HPI: patient is a 30-year-old single [place]ive[place] speaking female with hx of MDD, ADHD, OCD, BPD, EDNOS, anxiety, and complicated/chronic PTSD who presenting to the emergency department after suicide attempt by cutting her left wrist Precipitants: Patient reports her roommate filed restraining order against her, which pushed her over the edge . She took a kitchen knife to her left wrist and cut her wrist in front of both her roommate and the homeowner where she is living. Denies any HI. No A/V hallucination. Endorses regular alcohol use, no history of withdrawals. No access to firearms. States a long history of mental health problems, has been inpatient before. Just establish care with a PCP for the first time in 8 years and has not yet been put on any mental health medications.Reports she is in her final year of her associates degree and is now frustrated because if she goes inpatient, that will be ruined for her as well. Feels like she cannot catch a break. Formulation/clinical reasoning: Cut self with intent to take her life away, increased in anxiety and depression, mood is up and down from BPD, not into an issues with roommate and has no contact order from roommate, therefore she may not able to return- housing unstable which triggered PTSD symptoms. Hx of BPD, OCD, ADHD, MDD, anxiety, and complex PTSD. Given above information, patient would benefit in restrictive environment for own safety and the safety of others, medication management, and refer patient to longterm/OP psychiatric services for aftercare. Hospital course: 10/16/25: Prozac 10mg daily in the AM for anixety/depression/OCD. (denies manic hx) Seroquel 50mg at HS for mood/insomnia which can be chronic Seroquel 25mg BID PRN for agitation/psychosis Melatonin 6mg at HS for insonia Vitamin D3 25mcg dialy in the morning for low vitamin level (11). CIWA Protocol with PRN Ativan for alcohol W/D symptoms. PRN for anxiety/insomnia and other PRN comfort meds available. 10/17 patient reports starting to feel better; says she slept well with trazodone. Wants to continue with Prozac and Seroquel. Some withdrawal continues but she thinks it is waning. No SI -patient wants help getting and staying sober 10/18 Patient said that in some way she is starting to feel little better SI is fully resolved; however she is also starting to be come more aware of her depression and anxiety. Patient is most anxious about where she is going to live since this a restraining order on her at her current residents. She does not think family will be able to help all that much. However patient trying to remain hopeful, reminding herself that she is resilient, has a good job and has made it through many other things, even without medication; she thinks her Seroquel should be increased and agreed to have it go to 100 mg -patient earlier today complained of mild rash on her chest and abdomen; signwriter assess later in the afternoon and it was hardly visible and patient agreed that it seems to be resolving; she thinks it might be due to contact with hospital clothing on her admission. Agrees to monitor -low scoring but still some scoring so will continue CIWA for now 10/19/25:Denies SI,HI,AH,VH. CIWA/Lorazepam discontinued as pt believes she has completed detox. Discussed PTSD, trauma and medicating with alcohol. Pt's goals are to re- establish meds, receive referrals for stable out pt provider team and continue to work on stable housing. Reports diagnosis of borderline personality when in [place] which she will challenge-believes PTSD, Autism are more appropriate. My father has borderline personality, I do not lash out and don't believe I meet this criteria. Discussed autism dx-never formally tested. Reports IQ 162 with sx present since childhood. Discussed homelessness-cousin is helpful, offering storage space. Cousin's friend may be an option for housing. Pt and mother have been looking to live together for several years. Mother currently in supported living which pt describes as a bad situation. They are on a section VIII list, however, pt updated her name in April 2025 and was not allowed to update her application with her new name. She receives food stamps only and is looking for the stability of housing. 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 Later in the afternoon pt was served a restraining order by her partner. Plan: Continue Fluoxetine, Quetiapine Clotrimazole Cream x 7 days 10/21/25:Pt attending groups, finding milieu helpful. Anxious about restraining orders-discussed concerns. Struggling with management of symptoms/grounding. Reviewed benefits of low doses of prn olanzapine, risperdal, quetiapine and situations she may find them helpful in. Reports sleep is still of poor quality. Will increase Quetiapine this evening and re-eval efficacy. Plan: Increase Quetiapine to 200 mg HS Risperdal/Olanzapine prn for grounding Plan Patient on 15 minute checks for safety. Admitted to M5. CV. Continue Prozac 10 mg Increase to Seroquel 100 mg Work with treatment team to do collateral. Refer to patient to store operations specialist: yes- pending for alcohol use. Contact the hospitalist regarding hospitalist consultation on admission: pending Diagnotic and dsicharge planning Medical trials: seroquel, Prozac, flexeril and zyprexa.Report zyprexa has terrible side effects of weight gain and not helpful but combination of Seroquel and Prozac in the past were very helpful. She would like to restart. We also discuss regarding Prazosin but will start Seroquel and Prozac for now and will plan to add Prazosin in the future for PTSD. I think it is safer that way. Reason for continued inpatient stay Substantial Risk for: rapid decompensation Time Spent With Patient Time: Total time managing care of this patient today ____ minutes.
[2025-10-21 20:14] VITALS: BP 112/55; PULSE 76; RESP 18; TEMP 37.1; O2SAT 100
[2025-10-21] MEDS: Clotrimazole 1 % Vaginal Cream 45 GM TUBE 1 APPL VAGINAL (20:52)
[2025-10-22 08:00] VITALS: BP 98/56; PULSE 91; RESP 16; TEMP 36.9; O2SAT 96
--- NOTE | 2025-10-22 09:21 | HO.PSYCHPN ---
Subjective Subjective Date of Service: 10/22/25 Reason For Visit: SI Subjective Notes: Conditional Voluntary Healthcare Proxy: No Guardianship: No Medical Problems Affecting Mental Status: No Interim History: Pt reports sleep and appetite are intact. She reports some improvement. She has trialed prn Quetiapine and finds it helpful with anxiety. She is attending groups and organizing herself with lists for discharge and finding housing, an family law attorney and preparing to return to work. She has periods where she finds it overwhelming and is using group education for help in strengthening coping skills. Medication Compliance: Yes Side effects from medications: No Attending Groups: Intermittent Review of Systems Acute medical concerns: No Review of Systems Review of Systems Denies Mental Status Exam Mental Status Exam Patient Appearance: Appropriate Patient Orientation: Person, Place, Time and Situation Level of Consciousness: Alert Patient Behavior: Talkative and Good Eye Contact Mood Description: Anxious and Apprehensive Affect Description: Anxious and Apprehensive Patient Cognition Impaired: No Ability to Follow Directions: Good Speech Pattern: Spontaneous Speech Memory Description: Intact Hallucinations: None Delusions: Not Present Perceptual Disturbances: Depersonalization and Derealization Thought Process: Intact and Goal Oriented Thought Content: positive for Intact, positive for Goal Oriented and positive for Suicidal Ideation (denies) Depressive Symptoms: Thoughts of /Suicide (denies) Judgement: Fair Diagnostics Vital Signs (24Hr): Vital Signs - 24 hr 10/21/25 20:14 Temperature 98.8 F Pulse Rate 76 Respiratory Rate 18 Blood Pressure 112/55 L Pulse Oximetry 100 Oxygen Delivery Method Room Air BMI result Body Mass Index 23.8 Labs 10/17/25 08:08 Medications Medications Current Medications Acetaminophen (Acetaminophen 325 Mg Tablet) 650 mg PO Q6H PRN PRN Reason: Headache/Pain, Scale 1-10 Last Admin: 10/22/25 09:12 Dose: 650 mg Al Hydroxide/Mg Hydroxide (Magnesium Hydrox/Alum Hydrox 30 Ml Oral.Susp) 30 ml PO Q6H PRN PRN Reason: Heartburn/Nausea Clotrimazole (Clotrimazole 1 % Vaginal Cream 45 Gm Tube) 1 appl VAGINAL BEDTIME [facility] Stop: 10/25/25 21:01 Last Admin: 10/21/25 20:52 Dose: 1 appl Fluoxetine HCl (Fluoxetine Hcl 10 Mg Capsule) 10 mg PO DAILY [facility] Last Admin: 10/22/25 09:13 Dose: 10 mg Hydroxyzine HCl (Hydroxyzine Hcl 25 Mg Tablet) 25 mg PO Q6H PRN PRN Reason: mild anxiety Last Admin: 10/20/25 09:02 Dose: 25 mg Loratadine (Loratadine 10 Mg Tablet) 10 mg PO DAILY [facility] Last Admin: 10/22/25 09:12 Dose: 10 mg Magnesium Hydroxide (Milk Of Magnesia 30 Ml Oral.Susp) 30 ml PO DAILY PRN PRN Reason: Constipation Melatonin (Melatonin 3 Mg Tablet) 6 mg PO BEDTIME [facility] Last Admin: 10/21/25 20:51 Dose: 6 mg Nicotine (Nicotine 21 Mg Patch.Td24) 21 mg TRANSDERMA DAILY PRN PRN Reason: nicotine craving Nicotine Polacrilex (Nicotine Polacrilex 2 Mg Gum) 4 mg BUCCAL Q2H PRN PRN Reason: Nicotine Cravings Last Admin: 10/22/25 09:14 Dose: 2 mg Olanzapine (Olanzapine 2.5 Mg Tablet) 2.5 mg PO Q4H PRN PRN Reason: anxiety, agitation Quetiapine Fumarate (Quetiapine Fumarate 25 Mg Tablet) 25 mg PO BID PRN PRN Reason: agation/pschosis Last Admin: 10/21/25 15:10 Dose: 25 mg Quetiapine Fumarate (Quetiapine Fumarate 200 Mg Tablet) 200 mg PO BEDTIME [facility] Last Admin: 10/21/25 20:51 Dose: 200 mg Risperidone (Risperidone 0.5 Mg Tablet) 0.5 mg PO BID PRN PRN Reason: grounding Thiamine HCl (Thiamine Hcl 100 Mg Tablet) 100 mg PO DAILY [facility] Last Admin: 10/22/25 09:12 Dose: 100 mg Trazodone HCl (Trazodone Hcl 50 Mg Tablet) 50 mg PO BEDTIME MRX1 PRN PRN Reason: Insomnia Last Admin: 10/21/25 22:17 Dose: 50 mg Vitamin D (Cholecalciferol (Vitamin D3) 25 Mcg Tablet) 25 mcg PO DAILY [facility] Last Admin: 10/22/25 09:12 Dose: 25 mcg Allergies Allergies Allergy/AdvReac Type Severity Reaction Status Date / Time prednisone Allergy Severe stop Verified 09/30/25 12:54 breathing Assessment & Plan Assessment & Plan (1) MDD (major depressive disorder), recurrent episode, moderate: Status: Acute Code(s): F33.1 - Major depressive disorder, recurrent, moderate (2) OCD (obsessive compulsive disorder): Status: Acute Code(s): F42.9 - Obsessive-compulsive disorder, unspecified (3) Borderline personality disorder in adult: Status: Acute Code(s): F60.3 - Borderline personality disorder (4) ADHD: Status: Acute Code(s): F90.9 - Attention-deficit hyperactivity disorder, unspecified type (5) Eating disorder: Status: Acute Code(s): F50.9 - Eating disorder, unspecified (6) Complex posttraumatic stress disorder: Status: Acute Code(s): F43.10 - Post-traumatic stress disorder, unspecified (7) Homeless: Status: Acute Code(s): Z59.00 - Homelessness unspecified Plan HPI: patient is a 30-year-old single Jamaican speaking female with hx of MDD, ADHD, OCD, BPD, EDNOS, anxiety, and complicated/chronic PTSD who presenting to the emergency department after suicide attempt by cutting her left wrist Precipitants: Patient reports her roommate filed restraining order against her, which pushed her over the edge . She took a kitchen knife to her left wrist and cut her wrist in front of both her roommate and the homeowner where she is living. Denies any HI. No A/V hallucination. Endorses regular alcohol use, no history of withdrawals. No access to firearms. States a long history of mental health problems, has been inpatient before. Just establish care with a PCP for the first time in 8 years and has not yet been put on any mental health medications.Reports she is in her final year of her associates degree and is now frustrated because if she goes inpatient, that will be ruined for her as well. Feels like she cannot catch a break. Formulation/clinical reasoning: Cut self with intent to take her life away, increased in anxiety and depression, mood is up and down from BPD, not into an issues with roommate and has no contact order from roommate, therefore she may not able to return- housing unstable which triggered PTSD symptoms. Hx of BPD, OCD, ADHD, MDD, anxiety, and complex PTSD. Given above information, patient would benefit in restrictive environment for own safety and the safety of others, medication management, and refer patient to correction/OP psychiatric services for aftercare. Hospital course: 10/16/25: Prozac 10mg daily in the AM for anixety/depression/OCD. (denies manic hx) Seroquel 50mg at HS for mood/insomnia which can be chronic Seroquel 25mg BID PRN for agitation/psychosis Melatonin 6mg at HS for insonia Vitamin D3 25mcg dialy in the morning for low vitamin level (11). CIWA Protocol with PRN Ativan for alcohol W/D symptoms. PRN for anxiety/insomnia and other PRN comfort meds available. 10/17 patient reports starting to feel better; says she slept well with trazodone. Wants to continue with Prozac and Seroquel. Some withdrawal continues but she thinks it is waning. No SI -patient wants help getting and staying sober 10/18 Patient said that in some way she is starting to feel little better SI is fully resolved; however she is also starting to be come more aware of her depression and anxiety. Patient is most anxious about where she is going to live since this a restraining order on her at her current residents. She does not think family will be able to help all that much. However patient trying to remain hopeful, reminding herself that she is resilient, has a good job and has made it through many other things, even without medication; she thinks her Seroquel should be increased and agreed to have it go to 100 mg -patient earlier today complained of mild rash on her chest and abdomen; automobile service writer assess later in the afternoon and it was hardly visible and patient agreed that it seems to be resolving; she thinks it might be due to contact with hospital clothing on her admission. Agrees to monitor -low scoring but still some scoring so will continue CIWA for now 10/19/25:Denies SI,HI,AH,VH. CIWA/Lorazepam discontinued as pt believes she has completed detox. Discussed PTSD, trauma and medicating with alcohol. Pt's goals are to re-establish meds, receive referrals for stable out pt provider team and continue to work on stable housing. Reports diagnosis of borderline personality when in [place] which she will challenge-believes PTSD, Autism are more appropriate. My father has borderline personality, I do not lash out and don't believe I meet this criteria. Discussed autism dx-never formally tested. Reports IQ 162 with sx present since childhood. Discussed homelessness-cousin is helpful, offering storage space. Cousin's friend may be an option for housing. Pt and mother have been looking to live together for several years. Mother currently in supported living which pt describes as a bad situation. They are on a section VIII list, however, pt updated her name in April 2025 and was not allowed to update her application with her new name. She receives food stamps only and is looking for the stability of housing. 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 Later in the afternoon pt was served a restraining order by her partner. Plan: Continue Fluoxetine, Quetiapine Clotrimazole Cream x 7 days 10/20/25: Denies SI,HI,AH,VH Reports they slept well, team reports 8 hours. Discussed that the homeowner, her and the other tenant have filed restraining orders on them. Concerned about court dates, however, reports she has no paperwork to reference. Discussed with [place] and [place] [facility] per pt request, who state they need paperwork to look up these charges/dates. Pt does not understand why these were filed against them Pt attending groups, reports milieu to be helpful. 10/21: 10/21/25:Pt attending groups, finding milieu helpful. Anxious about restraining orders-discussed concerns. Struggling with management of symptoms/grounding. Reviewed benefits of low doses of prn olanzapine, risperdal, quetiapine and situations she may find them helpful in. Reports sleep is still of poor quality. Will increase Quetiapine this evening and re-eval efficacy. Plan: Increase Quetiapine to 200 mg HS Risperdal/Olanzapine prn for grounding 10/22:Pt reports sleep and appetite are intact. She reports some improvement. She has trialed prn Quetiapine and finds it helpful with anxiety. She is attending groups and organizing herself with lists for discharge and finding housing, an family law attorney and preparing to return to work. She has periods where she finds it overwhelming and is using group education for help in strengthening coping skills. Plan: Continue tx Plan Patient on 15 minute checks for safety. Admitted to M5. CV. Continue Prozac 10 mg Increase to Seroquel 100 mg Work with treatment team to do collateral. Refer to patient to apartment leasing specialist: yes- pending for alcohol use. Contact the hospitalist regarding hospitalist consultation on admission: pending Diagnotic and dsicharge planning Medical trials: seroquel, Prozac, flexeril and zyprexa.Report zyprexa has terrible side effects of weight gain and not helpful but combination of Seroquel and Prozac in the past were very helpful. She would like to restart. We also discuss regarding Prazosin but will start Seroquel and Prozac for now and will plan to add Prazosin in the future for PTSD. I think it is safer that way. Reason for continued inpatient stay Substantial Risk for: rapid decompensation Time Spent With Patient Time: Total time managing care of this patient today ____ minutes.
[2025-10-22 20:00] VITALS: BP 126/83; PULSE 120; RESP 16; TEMP 37.1; O2SAT 98
[2025-10-22] MEDS: Clotrimazole 1 % Vaginal Cream 45 GM TUBE 1 APPL VAGINAL (20:22)
[2025-10-23 08:14] VITALS: PULSE 100; RESP 16; TEMP 37.1; O2SAT 96
--- NOTE | 2025-10-23 09:58 | HO.PSYCHPN ---
Subjective Subjective Date of Service: 10/23/25 Reason For Visit: SI Subjective Notes: Conditional Voluntary Healthcare Proxy: No Guardianship: No Medical Problems Affecting Mental Status: No Interim History: Slept 8 hours. Denies SI,HI,AH,VH Preparing for discharge 10/26. Reports feeling she has an improved attitude, more energy and feels ready to return to work and face court charges. Discussed an offer from a co-worker to stay at her home while she is finalizing her apartment offer with her cousin's friend. Reports prn Quetiapine and Risperdal are helpful. No real response from Olanzapine prn so we will DC. Feeling positive about her progress at this time. Medication Compliance: Yes Side effects from medications: No Attending Groups: Yes Review of Systems Acute medical concerns: No Medical Review of Systems: unchanged Review of Systems Review of Systems Denies Mental Status Exam Mental Status Exam Patient Appearance: Appropriate Patient Orientation: Person, Place, Time and Situation Level of Consciousness: Alert Patient Behavior: Talkative and Good Eye Contact Mood Description: Anxious and Apprehensive Affect Description: Anxious and Apprehensive Patient Cognition Impaired: No Ability to Follow Directions: Good Speech Pattern: Spontaneous Speech Memory Description: Intact Hallucinations: None Delusions: Not Present Perceptual Disturbances: Depersonalization and Derealization Thought Process: Intact and Goal Oriented Thought Content: positive for Intact, positive for Goal Oriented and positive for Suicidal Ideation (denies) Depressive Symptoms: Thoughts of /Suicide (denies) Judgement: Fair Diagnostics Vital Signs (24Hr): Vital Signs - 24 hr 10/22/25 20:00 10/23/25 08:14 Temperature 98.8 F 98.8 F Pulse Rate 120 H 100 Respiratory Rate 16 16 Blood Pressure 126/83 Pulse Oximetry 98 96 Oxygen Delivery Method Room Air Room Air BMI result Body Mass Index 23.8 Labs 10/17/25 08:08 Medications Medications Current Medications Acetaminophen (Acetaminophen 325 Mg Tablet) 650 mg PO Q6H PRN PRN Reason: Headache/Pain, Scale 1-10 Last Admin: 10/22/25 09:12 Dose: 650 mg Al Hydroxide/Mg Hydroxide (Magnesium Hydrox/Alum Hydrox 30 Ml Oral.Susp) 30 ml PO Q6H PRN PRN Reason: Heartburn/Nausea Clotrimazole (Clotrimazole 1 % Vaginal Cream 45 Gm Tube) 1 appl VAGINAL BEDTIME DORINA Stop: 10/25/25 21:01 Last Admin: 10/22/25 20:22 Dose: 1 appl Fluoxetine HCl (Fluoxetine Hcl 10 Mg Capsule) 10 mg PO DAILY [facility] Last Admin: 10/23/25 08:57 Dose: 10 mg Hydroxyzine HCl (Hydroxyzine Hcl 25 Mg Tablet) 25 mg PO Q6H PRN PRN Reason: mild anxiety Last Admin: 10/20/25 09:02 Dose: 25 mg Loratadine (Loratadine 10 Mg Tablet) 10 mg PO DAILY [facility] Last Admin: 10/23/25 08:56 Dose: 10 mg Magnesium Hydroxide (Milk Of Magnesia 30 Ml Oral.Susp) 30 ml PO DAILY PRN PRN Reason: Constipation Melatonin (Melatonin 3 Mg Tablet) 6 mg PO BEDTIME [facility] Last Admin: 10/22/25 20:24 Dose: 6 mg Nicotine (Nicotine 21 Mg Patch.Td24) 21 mg TRANSDERMA DAILY PRN PRN Reason: nicotine craving Nicotine Polacrilex (Nicotine Polacrilex 2 Mg Gum) 4 mg BUCCAL Q2H PRN PRN Reason: Nicotine Cravings Last Admin: 10/22/25 20:33 Dose: 4 mg Olanzapine (Olanzapine 2.5 Mg Tablet) 2.5 mg PO Q4H PRN PRN Reason: anxiety, agitation Last Admin: 10/22/25 13:50 Dose: 2.5 mg Quetiapine Fumarate (Quetiapine Fumarate 25 Mg Tablet) 25 mg PO BID PRN PRN Reason: agation/pschosis Last Admin: 10/21/25 15:10 Dose: 25 mg Quetiapine Fumarate (Quetiapine Fumarate 200 Mg Tablet) 200 mg PO BEDTIME [facility] Last Admin: 10/22/25 20:24 Dose: 200 mg Risperidone (Risperidone 0.5 Mg Tablet) 0.5 mg PO BID PRN PRN Reason: grounding Last Admin: 10/22/25 16:46 Dose: 0.5 mg Thiamine HCl (Thiamine Hcl 100 Mg Tablet) 100 mg PO DAILY [facility] Last Admin: 10/23/25 08:56 Dose: 100 mg Trazodone HCl (Trazodone Hcl 50 Mg Tablet) 50 mg PO BEDTIME MRX1 PRN PRN Reason: Insomnia Last Admin: 10/22/25 22:56 Dose: 50 mg Vitamin D (Cholecalciferol (Vitamin D3) 25 Mcg Tablet) 25 mcg PO DAILY [facility] Last Admin: 10/23/25 08:56 Dose: 25 mcg Allergies Allergies Allergy/AdvReac Type Severity Reaction Status Date / Time prednisone Allergy Severe stop Verified 09/30/25 12:54 breathing Assessment & Plan Assessment & Plan (1) MDD (major depressive disorder), recurrent episode, moderate: Status: Acute Code(s): F33.1 - Major depressive disorder, recurrent, moderate (2) OCD (obsessive compulsive disorder): Status: Acute Code(s): F42.9 - Obsessive-compulsive disorder, unspecified (3) Borderline personality disorder in adult: Status: Acute Code(s): F60.3 - Borderline personality disorder (4) ADHD: Status: Acute Code(s): F90.9 - Attention-deficit hyperactivity disorder, unspecified type (5) Eating disorder: Status: Acute Code(s): F50.9 - Eating disorder, unspecified (6) Complex posttraumatic stress disorder: Status: Acute Code(s): F43.10 - Post-traumatic stress disorder, unspecified (7) Homeless: Status: Acute Code(s): Z59.00 - Homelessness unspecified Plan HPI: patient is a 30-year-old single Chinese speaking female with hx of MDD, ADHD, OCD, BPD, EDNOS, anxiety, and complicated/chronic PTSD who presenting to the emergency department after suicide attempt by cutting her left wrist Precipitants: Patient reports her roommate filed restraining order against her, which pushed her over the edge . She took a kitchen knife to her left wrist and cut her wrist in front of both her roommate and the homeowner where she is living. Denies any HI. No A/V hallucination. Endorses regular alcohol use, no history of withdrawals. No access to firearms. States a long history of mental health problems, has been inpatient before. Just establish care with a PCP for the first time in 8 years and has not yet been put on any mental health medications.Reports she is in her final year of her associates degree and is now frustrated because if she goes inpatient, that will be ruined for her as well. Feels like she cannot catch a break. Formulation/clinical reasoning: Cut self with intent to take her life away, increased in anxiety and depression, mood is up and down from BPD, not into an issues with roommate and has no contact order from roommate, therefore she may not able to return- housing unstable which triggered PTSD symptoms. Hx of BPD, OCD, ADHD, MDD, anxiety, and complex PTSD. Given above information, patient would benefit in restrictive environment for own safety and the safety of others, medication management, and refer patient to skilled nursing/OP psychiatric services for aftercare. Hospital course: 10/16/25: Prozac 10mg daily in the AM for anixety/depression/OCD. (denies manic hx) Seroquel 50mg at HS for mood/insomnia which can be chronic Seroquel 25mg BID PRN for agitation/psychosis Melatonin 6mg at HS for insonia Vitamin D3 25mcg dialy in the morning for low vitamin level (11). CIWA Protocol with PRN Ativan for alcohol W/D symptoms. PRN for anxiety/insomnia and other PRN comfort meds available. 10/17 patient reports starting to feel better; says she slept well with trazodone. Wants to continue with Prozac and Seroquel. Some withdrawal continues but she thinks it is waning. No SI -patient wants help getting and staying sober 10/18 Patient said that in some way she is starting to feel little better SI is fully resolved; however she is also starting to be come more aware of her depression and anxiety. Patient is most anxious about where she is going to live since this a restraining order on her at her current residents. She does not think family will be able to help all that much. However patient trying to remain hopeful, reminding herself that she is resilient, has a good job and has made it through many other things, even without medication; she thinks her Seroquel should be increased and agreed to have it go to 100 mg -patient earlier today complained of mild rash on her chest and abdomen; remote mortgage underwriter assess later in the afternoon and it was hardly visible and patient agreed that it seems to be resolving; she thinks it might be due to contact with hospital clothing on her admission. Agrees to monitor -low scoring but still some scoring so will continue CIWA for now 10/19/25:Denies SI,HI,AH,VH. CIWA/Lorazepam discontinued as pt believes she has completed detox. Discussed PTSD, trauma and medicating with alcohol. Pt's goals are to re-establish meds, receive referrals for stable out pt provider team and continue to work on stable housing. Reports diagnosis of borderline personality when in [place] which she will challenge-believes PTSD, Autism are more appropriate. My father has borderline personality, I do not lash out and don't believe I meet this criteria. Discussed autism dx-never formally tested. Reports IQ 162 with sx present since childhood. Discussed homelessness-cousin is helpful, offering storage space. Cousin's friend may be an option for housing. Pt and mother have been looking to live together for several years. Mother currently in supported living which pt describes as a bad situation. They are on a section VIII list, however, pt updated her name in April 2025 and was not allowed to update her application with her new name. She receives food stamps only and is looking for the stability of housing. 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 Later in the afternoon pt was served a restraining order by her partner. Plan: Continue Fluoxetine, Quetiapine Clotrimazole Cream x 7 days 10/20/25: Denies SI,HI,AH,VH Reports they slept well, team reports 8 hours. Discussed that the homeowner, her and the other tenant have filed restraining orders on them. Concerned about court dates, however, reports she has no paperwork to reference. Discussed with [facility] and [facility] per pt request, who state they need paperwork to look up these charges/dates. Pt does not understand why these were filed against them Pt attending groups, reports milieu to be helpful. 10/21: 10/21/25:Pt attending groups, finding milieu helpful. Anxious about restraining orders-discussed concerns. Struggling with management of symptoms/grounding. Reviewed benefits of low doses of prn olanzapine, risperdal, quetiapine and situations she may find them helpful in. Reports sleep is still of poor quality. Will increase Quetiapine this evening and re-eval efficacy. Plan: Increase Quetiapine to 200 mg HS Risperdal/Olanzapine prn for grounding 10/22:Pt reports sleep and appetite are intact. She reports some improvement. She has trialed prn Quetiapine and finds it helpful with anxiety. She is attending groups and organizing herself with lists for discharge and finding housing, an claims attorney and preparing to return to work. She has periods where she finds it overwhelming and is using group education for help in strengthening coping skills. Plan: Continue tx 10/23: Slept 8 hours. Denies SI,HI,AH,VH Preparing for discharge 10/26. Reports feeling she has an improved attitude, more energy and feels ready to return to work and face court charges. Discussed an offer from a co-worker to stay at her home while she is finalizing her apartment offer with her cousin's friend. Reports prn Quetiapine and Risperdal are helpful. No real response from Olanzapine prn so we will DC. Feeling positive about her progress at this time. Plan Patient on 15 minute checks for safety. Admitted to . CV. Continue Prozac 10 mg Increase to Seroquel 100 mg Work with treatment team to do collateral. Refer to patient to patient accounts specialist: yes- pending for alcohol use. Contact the hospitalist regarding hospitalist consultation on admission: pending Diagnotic and dsicharge planning Medical trials: seroquel, Prozac, flexeril and zyprexa.Report zyprexa has terrible side effects of weight gain and not helpful but combination of Seroquel and Prozac in the past were very helpful. She would like to restart. We also discuss regarding Prazosin but will start Seroquel and Prozac for now and will plan to add Prazosin in the future for PTSD. I think it is safer that way. Reason for continued inpatient stay Substantial Risk for: rapid decompensation Time Spent With Patient Time: Total time managing care of this patient today ____ minutes.
[2025-10-23 20:00] VITALS: BP 117/75; PULSE 106; RESP 20; TEMP 36.2; O2SAT 97
[2025-10-23] MEDS: Clotrimazole 1 % Vaginal Cream 45 GM TUBE 1 APPL VAGINAL (21:06)
[2025-10-24 08:00] VITALS: BP 143/86; PULSE 119; RESP 18; TEMP 36.1; O2SAT 97
--- NOTE | 2025-10-24 08:36 | HO.PSYCHPN ---
Subjective Subjective Date of Service: 10/24/25 Reason For Visit: SI Subjective Notes: Conditional Voluntary Healthcare Proxy: No Guardianship: No Medical Problems Affecting Mental Status: No Interim History: Patient seen and discussed with RN. Feeling anxious this morning because she is going to meet with her cousin and another person who is looking to rent a room in their house and wants to make a good impression. Received Hydroxyzine and feels it helped. Improved mood, anxiety. No SI. Hoping for discharge 10/26. Feels Risperidone helps. Denies SI,HI,AH,VH Medication Compliance: Yes Side effects from medications: No Attending Groups: Yes Review of Systems Acute medical concerns: No Medical Review of Systems: unchanged Review of Systems Review of Systems Denies Mental Status Exam Mental Status Exam Patient Appearance: Appropriate Patient Orientation: Person, Place, Time and Situation Level of Consciousness: Alert Patient Behavior: Talkative and Good Eye Contact Mood Description: Anxious and Apprehensive Affect Description: Anxious and Apprehensive Patient Cognition Impaired: No Ability to Follow Directions: Good Speech Pattern: Spontaneous Speech Memory Description: Intact Hallucinations: None Delusions: Not Present Perceptual Disturbances: Depersonalization and Derealization Thought Process: Intact and Goal Oriented Thought Content: positive for Intact, positive for Goal Oriented and positive for Suicidal Ideation (denies) Depressive Symptoms: Thoughts of /Suicide (denies) Judgement: Fair Diagnostics Vital Signs (24Hr): Vital Signs - 24 hr 10/23/25 20:00 Temperature 97.1 F Pulse Rate 106 H Respiratory Rate 20 Blood Pressure 117/75 Pulse Oximetry 97 Oxygen Delivery Method Room Air BMI result Body Mass Index 23.8 Labs 10/17/25 08:08 Medications Medications Current Medications Acetaminophen (Acetaminophen 325 Mg Tablet) 650 mg PO Q6H PRN PRN Reason: Headache/Pain, Scale 1-10 Last Admin: 10/22/25 09:12 Dose: 650 mg Al Hydroxide/Mg Hydroxide (Magnesium Hydrox/Alum Hydrox 30 Ml Oral.Susp) 30 ml PO Q6H PRN PRN Reason: Heartburn/Nausea Clotrimazole (Clotrimazole 1 % Vaginal Cream 45 Gm Tube) 1 appl VAGINAL BEDTIME [facility] Stop: 10/25/25 21:01 Last Admin: 10/23/25 21:06 Dose: 1 appl Fluoxetine HCl (Fluoxetine Hcl 10 Mg Capsule) 10 mg PO DAILY [facility] Last Admin: 10/23/25 08:57 Dose: 10 mg Hydroxyzine HCl (Hydroxyzine Hcl 25 Mg Tablet) 25 mg PO Q6H PRN PRN Reason: mild anxiety Last Admin: 10/20/25 09:02 Dose: 25 mg Loratadine (Loratadine 10 Mg Tablet) 10 mg PO DAILY [facility] Last Admin: 10/23/25 08:56 Dose: 10 mg Magnesium Hydroxide (Milk Of Magnesia 30 Ml Oral.Susp) 30 ml PO DAILY PRN PRN Reason: Constipation Melatonin (Melatonin 3 Mg Tablet) 6 mg PO BEDTIME [facility] Last Admin: 10/23/25 21:04 Dose: 6 mg Nicotine (Nicotine 21 Mg Patch.Td24) 21 mg TRANSDERMA DAILY PRN PRN Reason: nicotine craving Nicotine Polacrilex (Nicotine Polacrilex 2 Mg Gum) 4 mg BUCCAL Q2H PRN PRN Reason: Nicotine Cravings Last Admin: 10/23/25 21:08 Dose: 4 mg Quetiapine Fumarate (Quetiapine Fumarate 25 Mg Tablet) 25 mg PO BID PRN PRN Reason: agation/pschosis Last Admin: 10/23/25 22:48 Dose: 25 mg Quetiapine Fumarate (Quetiapine Fumarate 200 Mg Tablet) 200 mg PO BEDTIME [facility] Last Admin: 10/23/25 21:04 Dose: 200 mg Risperidone (Risperidone 0.5 Mg Tablet) 0.5 mg PO BID PRN PRN Reason: grounding Last Admin: 10/23/25 19:13 Dose: 0.5 mg Thiamine HCl (Thiamine Hcl 100 Mg Tablet) 100 mg PO DAILY [facility] Last Admin: 10/23/25 08:56 Dose: 100 mg Trazodone HCl (Trazodone Hcl 100 Mg Tablet) 100 mg PO BEDTIME [facility] Last Admin: 10/23/25 21:04 Dose: 100 mg Vitamin D (Cholecalciferol (Vitamin D3) 25 Mcg Tablet) 25 mcg PO DAILY [facility] Last Admin: 10/23/25 08:56 Dose: 25 mcg Allergies Allergies Allergy/AdvReac Type Severity Reaction Status Date / Time prednisone Allergy Severe stop Verified 09/30/25 12:54 breathing Assessment & Plan Assessment & Plan (1) MDD (major depressive disorder), recurrent episode, moderate: Status: Acute Code(s): F33.1 - Major depressive disorder, recurrent, moderate (2) OCD (obsessive compulsive disorder): Status: Acute Code(s): F42.9 - Obsessive-compulsive disorder, unspecified (3) Borderline personality disorder in adult: Status: Acute Code(s): F60.3 - Borderline personality disorder (4) ADHD: Status: Acute Code(s): F90.9 - Attention-deficit hyperactivity disorder, unspecified type (5) Eating disorder: Status: Acute Code(s): F50.9 - Eating disorder, unspecified (6) Complex posttraumatic stress disorder: Status: Acute Code(s): F43.10 - Post-traumatic stress disorder, unspecified (7) Homeless: Status: Acute Code(s): Z59.00 - Homelessness unspecified Plan HPI: patient is a 30-year-old single Spanish speaking female with hx of MDD, ADHD, OCD, BPD, EDNOS, anxiety, and complicated/chronic PTSD who presenting to the emergency department after suicide attempt by cutting her left wrist Precipitants: Patient reports her roommate filed restraining order against her, which pushed her over the edge . She took a kitchen knife to her left wrist and cut her wrist in front of both her roommate and the homeowner where she is living. Denies any HI. No A/V hallucination. Endorses regular alcohol use, no history of withdrawals. No access to firearms. States a long history of mental health problems, has been inpatient before. Just establish care with a PCP for the first time in 8 years and has not yet been put on any mental health medications.Reports she is in her final year of her associates degree and is now frustrated because if she goes inpatient, that will be ruined for her as well. Feels like she cannot catch a break. Formulation/clinical reasoning: Cut self with intent to take her life away, increased in anxiety and depression, mood is up and down from BPD, not into an issues with roommate and has no contact order from roommate, therefore she may not able to return- housing unstable which triggered PTSD symptoms. Hx of BPD, OCD, ADHD, MDD, anxiety, and complex PTSD. Given above information, patient would benefit in restrictive environment for own safety and the safety of others, medication management, and refer patient to group home/OP psychiatric services for aftercare. Hospital course: 10/16/25: Prozac 10mg daily in the AM for anixety/depression/OCD. (denies manic hx) Seroquel 50mg at HS for mood/insomnia which can be chronic Seroquel 25mg BID PRN for agitation/psychosis Melatonin 6mg at HS for insonia Vitamin D3 25mcg dialy in the morning for low vitamin level (11). CIWA Protocol with PRN Ativan for alcohol W/D symptoms. PRN for anxiety/insomnia and other PRN comfort meds available. 10/17 patient reports starting to feel better; says she slept well with trazodone. Wants to continue with Prozac and Seroquel. Some withdrawal continues but she thinks it is waning. No SI -patient wants help getting and staying sober 10/18 Patient said that in some way she is starting to feel little better SI is fully resolved; however she is also starting to be come more aware of her depression and anxiety. Patient is most anxious about where she is going to live since this a restraining order on her at her current residents. She does not think family will be able to help all that much. 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 Agrees to monitor -low scoring but still some scoring so will continue CIWA for now 10/19/25:Denies SI,HI,AH,VH. CIWA/Lorazepam discontinued as pt believes she has completed detox. Discussed PTSD, trauma and medicating with alcohol. Pt's goals are to re-establish meds, receive referrals for stable out pt provider team and continue to work on stable housing. Reports diagnosis of borderline personality when in [place] which she will challenge-believes PTSD, Autism are more appropriate. My father has borderline personality, I do not lash out and don't believe I meet this criteria. Discussed autism dx-never formally tested. Reports IQ 162 with sx present since childhood. Discussed homelessness-cousin is helpful, offering storage space. Cousin's friend may be an option for housing. Pt and mother have been looking to live together for several years. Mother currently in supported living which pt describes as a bad situation. They are on a section VIII list, however, pt updated her name in April 2025 and was not allowed to update her application with her new name. She receives food stamps only and is looking for the stability of housing. 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 Later in the afternoon pt was served a restraining order by her partner. Plan: Continue Fluoxetine, Quetiapine Clotrimazole Cream x 7 days 10/20/25: Denies SI,HI,AH,VH Reports they slept well, team reports 8 hours. Discussed that the homeowner, her and the other tenant have filed restraining orders on them. Concerned about court dates, however, reports she has no paperwork to reference. Discussed with [place] and [place] [facility] per pt request, who state they need paperwork to look up these charges/dates. Pt does not understand why these were filed against them Pt attending groups, reports milieu to be helpful. 10/21: 10/21/25:Pt attending groups, finding milieu helpful. Anxious about restraining orders-discussed concerns. Struggling with management of symptoms/grounding. Reviewed benefits of low doses of prn olanzapine, risperdal, quetiapine and situations she may find them helpful in. Reports sleep is still of poor quality. Will increase Quetiapine this evening and re-eval efficacy. Plan: Increase Quetiapine to 200 mg HS Risperdal/Olanzapine prn for grounding 10/22:Pt reports sleep and appetite are intact. She reports some improvement. She has trialed prn Quetiapine and finds it helpful with anxiety. 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 She has periods where she finds it overwhelming and is using group education for help in strengthening coping skills. Plan: Continue tx 10/23: Slept 8 hours. Denies SI,HI,AH,VH Preparing for discharge 10/26. Reports feeling she has an improved attitude, more energy and feels ready to return to work and face court charges. Discussed an offer from a co-worker to stay at her home while she is finalizing her apartment offer with her cousin's friend. Reports prn Quetiapine and Risperdal are helpful. No real response from Olanzapine prn so we will DC. Feeling positive about her progress at this time. 10/24: continue current management and treatment plan. Plan Patient on 15 minute checks for safety. Admitted to [facility]. CV. Continue Prozac 10 mg Increase to Seroquel 100 mg Work with treatment team to do collateral. Refer to patient to school psychology specialist: yes- pending for alcohol use. Contact the hospitalist regarding hospitalist consultation on admission: pending Diagnotic and dsicharge planning Medical trials: seroquel, Prozac, flexeril and zyprexa.Report zyprexa has terrible side effects of weight gain and not helpful but combination of Seroquel and Prozac in the past were very helpful. She would like to restart. We also discuss regarding Prazosin but will start Seroquel and Prozac for now and will plan to add Prazosin in the future for PTSD. I think it is safer that way. Reason for continued inpatient stay Substantial Risk for: rapid decompensation Time Spent With Patient Time: Total time managing care of this patient today ____ minutes.
[2025-10-24 20:00] VITALS: BP 156/90; PULSE 94; RESP 20; TEMP 37; O2SAT 98
[2025-10-24] MEDS: Clotrimazole 1 % Vaginal Cream 45 GM TUBE 1 APPL VAGINAL (20:27)
[2025-10-25 08:00] VITALS: BP 136/80; PULSE 117; RESP 18; TEMP 36.6; O2SAT 95
--- NOTE | 2025-10-25 09:00 | P.PNPSI_ITS ---
Subjective Subjective Date of Service: 10/25/25 Reason For Visit: SI Subjective Notes: Conditional Voluntary Healthcare Proxy: No Guardianship: No Medical Problems Affecting Mental Status: No Interim History: Patient seen and discussed with RN. Reports she had a hard time sleeping last night and wondering if Seroquel dose can be increased. She reports she is still anxious but improved compared to admission. Her visit yesterday went well and the plan is for her to move to a new place next Sunday. She will be staying with a coworker until then. Hoping for DC soon. No SI. No AVH. Medication Compliance: Yes Side effects from medications: No Attending Groups: Yes Review of Systems Acute medical concerns: No Medical Review of Systems: unchanged Review of Systems Review of Systems Denies Mental Status Exam Mental Status Exam Patient Appearance: Appropriate Patient Orientation: Person, Place, Time and Situation Level of Consciousness: Alert Patient Behavior: Talkative and Good Eye Contact Mood Description: Anxious and Apprehensive Affect Description: Anxious and Apprehensive Patient Cognition Impaired: No Ability to Follow Directions: Good Speech Pattern: Spontaneous Speech Memory Description: Intact Hallucinations: None Delusions: Not Present Perceptual Disturbances: Depersonalization and Derealization Thought Process: Intact and Goal Oriented Thought Content: positive for Intact, positive for Goal Oriented and positive for Suicidal Ideation (denies) Depressive Symptoms: Thoughts of /Suicide (denies) Judgement: Fair Diagnostics Vital Signs (24Hr): Vital Signs - 24 hr 10/24/25 20:00 10/25/25 08:00 Temperature 98.6 F 97.9 F Pulse Rate 94 117 H Respiratory Rate 20 18 Blood Pressure 156/90 H 136/80 Pulse Oximetry 98 95 Oxygen Delivery Method Room Air Room Air BMI result Body Mass Index 23.8 Labs 10/17/25 08:08 Medications Medications Current Medications Acetaminophen (Acetaminophen 325 Mg Tablet) 650 mg PO Q6H PRN PRN Reason: Headache/Pain, Scale 1-10 Last Admin: 10/25/25 08:39 Dose: 650 mg Al Hydroxide/Mg Hydroxide (Magnesium Hydrox/Alum Hydrox 30 Ml Oral.Susp) 30 ml PO Q6H PRN PRN Reason: Heartburn/Nausea Clotrimazole (Clotrimazole 1 % Vaginal Cream 45 Gm Tube) 1 appl VAGINAL BEDTIME DORINA Stop: 10/25/25 21:01 Last Admin: 10/24/25 20:27 Dose: 1 appl Fluoxetine HCl (Fluoxetine Hcl 10 Mg Capsule) 10 mg PO DAILY [facility] Last Admin: 10/25/25 08:34 Dose: 10 mg Hydroxyzine HCl (Hydroxyzine Hcl 25 Mg Tablet) 25 mg PO Q6H PRN PRN Reason: mild anxiety Last Admin: 10/25/25 08:35 Dose: 25 mg Loratadine (Loratadine 10 Mg Tablet) 10 mg PO DAILY [facility] Last Admin: 10/25/25 08:34 Dose: 10 mg Magnesium Hydroxide (Milk Of Magnesia 30 Ml Oral.Susp) 30 ml PO DAILY PRN PRN Reason: Constipation Melatonin (Melatonin 3 Mg Tablet) 6 mg PO BEDTIME [facility] Last Admin: 10/24/25 20:25 Dose: 6 mg Nicotine (Nicotine 21 Mg Patch.Td24) 21 mg TRANSDERMA DAILY PRN PRN Reason: nicotine craving Nicotine Polacrilex (Nicotine Polacrilex 2 Mg Gum) 4 mg BUCCAL Q2H PRN PRN Reason: Nicotine Cravings Last Admin: 10/25/25 08:36 Dose: 2 mg Quetiapine Fumarate (Quetiapine Fumarate 25 Mg Tablet) 25 mg PO BID PRN PRN Reason: agation/pschosis Last Admin: 10/24/25 14:33 Dose: 25 mg Quetiapine Fumarate (Quetiapine Fumarate 200 Mg Tablet) 200 mg PO BEDTIME [facility] Last Admin: 10/24/25 20:25 Dose: 200 mg Risperidone (Risperidone 0.5 Mg Tablet) 0.5 mg PO BID PRN PRN Reason: grounding Last Admin: 10/23/25 19:13 Dose: 0.5 mg Thiamine HCl (Thiamine Hcl 100 Mg Tablet) 100 mg PO DAILY [facility] Last Admin: 10/25/25 08:35 Dose: 100 mg Trazodone HCl (Trazodone Hcl 100 Mg Tablet) 100 mg PO BEDTIME [facility] Last Admin: 10/24/25 20:25 Dose: 100 mg Vitamin D (Cholecalciferol (Vitamin D3) 25 Mcg Tablet) 25 mcg PO DAILY [facility] Last Admin: 10/25/25 08:34 Dose: 25 mcg Allergies Allergies Allergy/AdvReac Type Severity Reaction Status Date / Time prednisone Allergy Severe stop Verified 09/30/25 12:54 breathing Assessment & Plan Assessment & Plan (1) MDD (major depressive disorder), recurrent episode, moderate: Status: Acute Code(s): F33.1 - Major depressive disorder, recurrent, moderate (2) OCD (obsessive compulsive disorder): Status: Acute Code(s): F42.9 - Obsessive-compulsive disorder, unspecified (3) Borderline personality disorder in adult: Status: Acute Code(s): F60.3 - Borderline personality disorder (4) ADHD: Status: Acute Code(s): F90.9 - Attention-deficit hyperactivity disorder, unspecified type (5) Eating disorder: Status: Acute Code(s): F50.9 - Eating disorder, unspecified (6) Complex posttraumatic stress disorder: Status: Acute Code(s): F43.10 - Post-traumatic stress disorder, unspecified (7) Homeless: Status: Acute Code(s): Z59.00 - Homelessness unspecified Plan HPI: patient is a 30-year-old single American speaking female with hx of MDD, ADHD, OCD, BPD, EDNOS, anxiety, and complicated/chronic PTSD who presenting to the emergency department after suicide attempt by cutting her left wrist Precipitants: Patient reports her roommate filed restraining order against her, which pushed her over the edge . She took a kitchen knife to her left wrist and cut her wrist in front of both her roommate and the homeowner where she is living. Denies any HI. No A/V hallucination. Endorses regular alcohol use, no history of withdrawals. No access to firearms. States a long history of mental health problems, has been inpatient before. Just establish care with a PCP for the first time in 8 years and has not yet been put on any mental health medications.Reports she is in her final year of her associates degree and is now frustrated because if she goes inpatient, that will be ruined for her as well. Feels like she cannot catch a break. Formulation/clinical reasoning: Cut self with intent to take her life away, increased in anxiety and depression, mood is up and down from BPD, not into an issues with roommate and has no contact order from roommate, therefore she may not able to return- housing unstable which triggered PTSD symptoms. Hx of BPD, OCD, ADHD, MDD, anxiety, and complex PTSD. Given above information, patient would benefit in restrictive environment for own safety and the safety of others, medication management, and refer patient to longterm/OP psychiatric services for aftercare. Hospital course: 10/16/25: Prozac 10mg daily in the AM for anixety/depression/OCD. (denies manic hx) Seroquel 50mg at HS for mood/insomnia which can be chronic Seroquel 25mg BID PRN for agitation/psychosis Melatonin 6mg at HS for insonia Vitamin D3 25mcg dialy in the morning for low vitamin level (11). CIWA Protocol with PRN Ativan for alcohol W/D symptoms. PRN for anxiety/insomnia and other PRN comfort meds available. 10/17 patient reports starting to feel better; says she slept well with trazodone. Wants to continue with Prozac and Seroquel. Some withdrawal continues but she thinks it is waning. No SI -patient wants help getting and staying sober 10/18 Patient said that in some way she is starting to feel little better SI is fully resolved; however she is also starting to be come more aware of her depression and anxiety. Patient is most anxious about where she is going to live since this a restraining order on her at her current residents. She does not think family will be able to help all that much. However patient trying to remain hopeful, reminding herself that she is resilient, has a good job and has made it through many other things, even without medication; she thinks her Seroquel should be increased and agreed to have it go to 100 mg -patient earlier today complained of mild rash on her chest and abdomen; senior underwriter assess later in the afternoon and it was hardly visible and patient agreed that it seems to be resolving; she thinks it might be due to contact with hospital clothing on her admission. Agrees to monitor -low scoring but still some scoring so will continue CIWA for now 10/19/25:Denies SI,HI,AH,VH. CIWA/Lorazepam discontinued as pt believes she has completed detox. Discussed PTSD, trauma and medicating with alcohol. Pt's goals are to re- establish meds, receive referrals for stable out pt provider team and continue to work on stable housing. Reports diagnosis of borderline personality when in [place] which she will challenge-believes PTSD, Autism are more appropriate. My father has borderline personality, I do not lash out and don't believe I meet this criteria. Discussed autism dx-never formally tested. Reports IQ 162 with sx present since childhood. Discussed homelessness-cousin is helpful, offering storage space. Cousin's friend may be an option for housing. Pt and mother have been looking to live together for several years. Mother currently in supported living which pt describes as a bad situation. They are on a section VIII list, however, pt updated her name in April 2025 and was not allowed to update her application with her new name. She receives food stamps only and is looking for the stability of housing. 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 Later in the afternoon pt was served a restraining order by her partner. Plan: Continue Fluoxetine, Quetiapine Clotrimazole Cream x 7 days 10/20/25: LOLITA Ordaz SI,AH,VH Reports they slept well, team reports 8 hours. Discussed that the homeowner, her and the other tenant have filed restraining orders on them. Concerned about court dates, however, reports she has no paperwork to reference. Discussed with [place] [facility] [place] [facility] per pt request, who state they need paperwork to look up these charges/dates. Pt does not understand why these were filed against them Pt attending groups, reports milieu to be helpful. 10/21: 10/21/25:Pt attending groups, finding milieu helpful. Anxious about restraining orders-discussed concerns. Struggling with management of symptoms/grounding. Reviewed benefits of low doses of prn olanzapine, risperdal, quetiapine and situations she may find them helpful in. Reports sleep is still of poor quality. Will increase Quetiapine this evening and re-eval efficacy. Plan: Increase Quetiapine to 200 mg HS Risperdal/Olanzapine prn for grounding 10/22:Pt reports sleep and appetite are intact. She reports some improvement. She has trialed prn Quetiapine and finds it helpful with anxiety. 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 She has periods where she finds it overwhelming and is using group education for help in strengthening coping skills. Plan: Continue tx 10/23: Slept 8 hours. Denies LOLITA BARRETT,AH,VH Preparing for discharge 10/26. Reports feeling she has an improved attitude, more energy and feels ready to return to work and face court charges. Discussed an offer from a co-worker to stay at her home while she is finalizing her apartment offer with her cousin's friend. Reports prn Quetiapine and Risperdal are helpful. No real response from Olanzapine prn so we will DC. Feeling positive about her progress at this time. 10/24: continue current management and treatment plan. 10/25: Increase HS Seroquel to 250 mg. Continue current management and treatment plan. Plan Patient on 15 minute checks for safety. Admitted to M5. CV. Continue Prozac 10 mg Increase to Seroquel 100 mg Work with treatment team to do collateral. Refer to patient to patient accounts specialist: yes- pending for alcohol use. Contact the hospitalist regarding hospitalist consultation on admission: pending Diagnotic and dsicharge planning Medical trials: seroquel, Prozac, flexeril and zyprexa.Report zyprexa has terrible side effects of weight gain and not helpful but combination of Seroquel and Prozac in the past were very helpful. She would like to restart. We also discuss regarding Prazosin but will start Seroquel and Prozac for now and will plan to add Prazosin in the future for PTSD. I think it is safer that way. Reason for continued inpatient stay Substantial Risk for: rapid decompensation Time Spent With Patient Time: Total time managing care of this patient today ____ minutes.
[2025-10-25 20:04] VITALS: BP 148/87; PULSE 113; RESP 18; TEMP 37.2; O2SAT 95
[2025-10-25] MEDS: Clotrimazole 1 % Vaginal Cream 45 GM TUBE 1 APPL VAGINAL (20:35)
[2025-10-26 08:00] VITALS: BP 148/80; PULSE 104; TEMP 36.4; O2SAT 96
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
== END 2025-10-26 11:40 | disposition other institution (70) | DRG 751 ==
PROVIDERS: Nurse Practitioner Psychiatric/Mental Health; Physician Assistant Medical; Admitting Provider Psychiatry & Neurology Psychiatry; PCP Student in an Organized Health Care Education/Training Program; Visit Provider Psychiatry & Neurology Psychiatry
DX: F33.1 Major depressive disorder, recurrent, moderate (principal); F50.9 Eating disorder, unspecified; F17.210 Nicotine dependence, cigarettes, uncomplicated; N76.0 Acute vaginitis; Z71.6 Tobacco abuse counseling; F90.9 Attention-deficit hyperactivity disorder, unspecified type; F60.3 Borderline personality disorder; F43.10 Post-traumatic stress disorder, unspecified; F42.9 Obsessive-compulsive disorder, unspecified; L29.9 Pruritus, unspecified; Z59.02 Unsheltered homelessness; Z91.51 Personal history of suicidal behavior; Z91.52 Personal history of nonsuicidal self-harm; Z79.899 Other long term (current) drug therapy
CPT/HCPCS: 36415; 80053; 80061; 81515; 82607; 82746; 83036; 83735; 84439; 84443

== ENCOUNTER → 2025-10-16 17:24 | Outpatient (BNV) | payer BC, SELFPAY | PROVIDERS: Admitting Provider Psychiatry & Neurology Psychiatry; PCP Student in an Organized Health Care Education/Training Program; Visit Provider Psychiatry & Neurology Psychiatry | DX: F33.1 Major depressive disorder, recurrent, moderate (principal); F60.3 Borderline personality disorder; F42.9 Obsessive-compulsive disorder, unspecified; F90.9 Attention-deficit hyperactivity disorder, unspecified type; F50.9 Eating disorder, unspecified; F43.10 Post-traumatic stress disorder, unspecified; Z59.00 Homelessness unspecified | CPT/HCPCS: 90792; 99231; 99232 ==

== ENCOUNTER → 2025-10-16 17:24 | Outpatient (BNV) | payer BC, SELFPAY | PROVIDERS: Admitting Provider Psychiatry & Neurology Psychiatry; PCP Student in an Organized Health Care Education/Training Program; Visit Provider Physician Assistant Medical | DX: N76.0 Acute vaginitis (principal); L29.9 Pruritus, unspecified | CPT/HCPCS: 99252 ==